=== PATIENT | female | born 1980 | race African-American/Black ===

== ENCOUNTER 2019-07-05 16:17 | Outpatient (CLI) | payer OTHER, SELFPAY ==
--- NOTE | ~2019-07-05 | XR_ITS ---
EXAMINATION: XR chest 2V EXAM DATE: 07/05/2019 16:37 INDICATION: Personal history of nicotine dependence. TECHNIQUE: Frontal and lateral projections of the chest obtained and reviewed. There is no prior stef dy for comparison. FINDINGS: The lungs are clear. There are no pleural effusions. The cardiomediastinal silhouette is within normal limits. There is no pneumothorax suspected. The bones and soft tissues are unremarkab le. IMPRESSION: Normal chest x-ray exam. Reviewed, dictated and finalized at location B. TIC ENGINEER IMPRESSION: Normal chest x-ray exam.
== END 2019-07-05 16:18 | disposition home or self-care (01) ==
PROVIDERS: PCP Family Medicine; Visit Provider Family Medicine
DX: Z87.891 Personal history of nicotine dependence (principal)
CPT/HCPCS: 71046

== ENCOUNTER 2020-06-10 16:12 | Outpatient (CLI) | payer OTHER, SELFPAY ==
--- NOTE | ~2020-06-10 | XR_ITS ---
EXAMINATION: XR elbow RT min 3V DATE: 06/10/2020 16:33 INDICATION: Right elbow pain. TECHNIQUE: 4 views of right elbow were obtained. COMPARISON: None. FINDINGS: Bone alignment is normal. No fracture. Joint spaces are normal. There is an enthesophyte at the sublime tubercle of proximal ulna. No elbow joint effusion. IMPRESSION: 1. No fracture. Reviewed, dictated and finalized at location A. RVISOR OPENING AND PICKING IMPRESSION: 1. No fracture.
[2020-06-10 19:43] LABS: Basophils Absolute Auto 0.1 K/mm3 (0.0-0.1); Basophils Percent Auto 0.9 % (0.2-1.2); Eosinophils Absolute Auto 0.1 K/mm3 (0-0.3); Eosinophils Percent Auto 1.5 % (0-4.4); Hematocrit 41.8 % (37.0-47.0); Hemoglobin 14.2 g/dL (12.0-15.0); Immature Granulocyte Absolute 0.01 K/mm3 (0.00-0.031); Immature Granulocyte Percent A 0.2 % (0-0.5); Lymphocytes Absolute Auto 1.99 K/mm3 (0.9-3.2); Lymphocytes Percent Auto 30.4 % (18.3-44.2); Mean Corpuscular Volume 91.3 fl (80-100); Mean Platelet Volume 11.2 fl (7.4-10.4); Monocytes Absolute Auto 0.6 K/mm3 (0.1-0.6); Neutrophils Absolute Auto 3.8 K/mm3 (1.3-6.7); Platelet Count Result 356 k/mm3 (150-375); Red Blood Count 4.58 M/mm3 (4.2-5.4); Red Cell Distribution Width 12.7 % (11.5-14.5); White Blood Count 6.5 K/mm3 (4.5-10.0)
[2020-06-10 19:51] LABS: Anion Gap 9 mmol/L (8-16); Blood Urea Nitrogen 13 mg/dL (7-17); Calcium 9.8 mg/dL (8.4-10.2); Carbon Dioxide 25 mmol/L (22-30); Chloride 104 mmol/L (98-107); Estimated Glomerular Filt Rate > 60; Glucose 111 mg/dL (65-105); Potassium 4.2 mmol/L (3.4-5.0); Rheumatoid Factor < 8.6 IU/ML (<12); Sodium 138 mmol/L (137-145); Uric Acid 4.9 mg/dL (2.5-7.5)
[2020-06-10 20:11] LABS: Erythrocyte Sedimentation Rate 26 mm/hr (0-20)
[2020-06-13 07:15] LABS: C-Peptide 2.62 ng/mL (0.80-3.85)
[2020-06-15 03:24] LABS: Insulin Level Total 9.3 uIU/mL (<=19.6)
== END 2020-06-10 16:13 | disposition home or self-care (01) ==
LOC: ANHBWCLAB 16:14
PROVIDERS: PCP Family Medicine; Visit Provider Family Medicine
DX: M25.521 Pain in right elbow (principal); M19.90 Unspecified osteoarthritis, unspecified site; Z51.81 Encounter for therapeutic drug level monitoring; Z79.899 Other long term (current) drug therapy; Z82.62 Family history of osteoporosis; R10.9 Unspecified abdominal pain; I10 Essential (primary) hypertension; R73.9 Hyperglycemia, unspecified
CPT/HCPCS: 36415; 73080; 80048; 83525; 84550; 84681; 85025; 85652; 86038; 86140; 86430

== ENCOUNTER 2020-12-16 11:24 | Outpatient (CLI) | payer OTHER, SELFPAY ==
[2020-12-16 19:35] LABS: Hemoglobin A1C 6.1 % (<5.7)
== END 2020-12-16 11:25 | disposition home or self-care (01) ==
LOC: ANHBWCLAB 11:26
PROVIDERS: PCP Family Medicine; Visit Provider Family Medicine
DX: E66.9 Obesity, unspecified (principal); R73.9 Hyperglycemia, unspecified
CPT/HCPCS: 36415; 83036

== ENCOUNTER 2021-01-15 14:53 | Outpatient (CLI) | payer OTHER, SELFPAY ==
--- NOTE | ~2021-01-15 | MR_ITS ---
EXAMINATION: MR elbow RT wo con DATE: 01/15/2021 15:53 INDICATION: Lateral epicondylitis. Right elbow pain. TECHNIQUE: Magnetic resonance imaging (MRI) of the right elbow was performed without intravenous cont rast. Sequences included coronal, axial, and sagittal PD-weighted FS FSE and coronal, axial, and sagi ttal PD-weighted FSE. COMPARISON: Right elbow radiographs 07/07/2020 FINDINGS: Osseous/other: Bone alignment is normal. No fracture. There is partial-thickness cartilage loss in posterior ulnohum eral joint with mild subchondral edema-like marrow signal intensity. Tiny osteophytes are noted. Tendons: Biceps tendon and brachialis tendon are normal. The triceps tendon is normal. The common flexor tendo n is normal. There is a partial tear of the common extensor tendon at lateral humeral epicondyle. Sub cutaneous edema overlies this area. Ligaments: Radial collateral ligament and lateral ulnar collateral ligament are normal. There is an enthesophyte at the distal attachment of ulnar collateral ligament. There are changes of prior sprain of ulnar co llateral ligament characterized by thickening and increased signal intensity. Cubital tunnel: There is increased signal in ulnar nerve, consistent with neuropathy. Subcutaneous edema overlies thi s area. Fluid: There is no elbow joint effusion. IMPRESSION: 1. Partial tear of common extensor tendon at lateral humeral epicondyle. 2. Mild elbow joint chondrosis. 3. Increased signal in ulnar nerve, consistent with neuropathy. Reviewed, dictated and finalized at location A.
== END 2021-01-15 14:54 | disposition home or self-care (01) ==
PROVIDERS: PCP Family Medicine; Visit Provider Orthopaedic Surgery
DX: S56.511A Strain of other extensor muscle, fascia and tendon at forearm level, right arm, initial encounter (principal); M11.221 Other chondrocalcinosis, right elbow; X58.XXXA Exposure to other specified factors, initial encounter
CPT/HCPCS: 73221

== ENCOUNTER → 2021-02-17 02:43 | Outpatient (CLI) | payer OTHER, SELFPAY ==
[2021-02-17 16:22] LABS: SARS-CoV-2 RNA PCR Negative
== END ==
PROVIDERS: PCP Family Medicine; Visit Provider Orthopaedic Surgery
DX: Z01.812 Encounter for preprocedural laboratory examination (principal); Z20.822 Contact with and (suspected) exposure to COVID-19
CPT/HCPCS: C9803; U0003; U0005

== ENCOUNTER 2021-02-17 09:29 | Outpatient (CLI) | payer OTHER, SELFPAY ==
--- NOTE | 2021-02-17 09:36 | ECG_ITS ---
Measurements Intervals [place] Rate: 72 P: 29 TN: 160 QRS: 30 QRSD: 93 T: 37 QT: 381 QTc: 419 Interpretive Statements SINUS RHYTHM ATRIAL AND VENTRICULAR PREMATURE COMPLEXES DELAYED PRECORDIAL R/S TRANSITION BASELINE ARTIFACT- I, II, III, AVR, AVL, AVF BORDERLINE ECG Electronically Signed On 02-17-2021 9:52:05 CDT by Shekhar Mock D.O.
[2021-02-17 09:53] LABS: Hematocrit 42.2 % (37.0-47.0); Hemoglobin 14.4 g/dL (12.0-15.0)
== END 2021-02-17 09:30 | disposition home or self-care (01) ==
PROVIDERS: Anesthesiology; PCP Family Medicine; Visit Provider Orthopaedic Surgery
DX: I10 Essential (primary) hypertension (principal); D64.9 Anemia, unspecified; Z01.818 Encounter for other preprocedural examination
CPT/HCPCS: 36415; 85014; 85018; 93005; C9803; U0003; U0005

== ENCOUNTER 2021-02-20 00:44 | Day surgery (SDC) | payer OTHER, SELFPAY ==
[2021-02-13 08:23] VITALS: BMI 43.0
--- NOTE | 2021-02-19 08:35 | WPDANESEPPF ---
Anes - Initial Pre Proc Eval Procedure: Operation Date: 02/20/21 12:00 Proposed Procedures p Right Ulnar Nerve Decompression of the Elbow, Lateral Epicondylitis Debridement - Alfonzo Burk MD Date/Time: 02/19/21 08:35 Surgeon: Alfonzo Burk MD Pre Op Diagnosis: ulnar neuropathy Patient Data Age: 40 Gender: F Height: 1.68 m Weight: 121.11 kg Allergies Allergy/AdvReac Type Severity Reaction Status Date / Time fluconazole Allergy Itching Verified 02/20/21 10:45 methocarbamol [From Robaxin] Allergy Hives Verified 02/20/21 10:45 Penicillins Allergy Hives Verified 02/20/21 10:45 piperacillin [From Zosyn] Allergy Hives Verified 02/20/21 10:45 tazobactam [From Zosyn] Allergy Hives Verified 02/20/21 10:45 Home Medications Medication Instructions Recorded Confirmed Type pantoprazole 40 mg tablet,delayed 40 mg PO QAM #90 tablet 06/30/20 02/13/21 Rx release ergocalciferol (vitamin D2) 1,250 1,250 mcg PO MONTHLY #3 cap 09/15/20 02/13/21 Rx mcg (50,000 unit) capsule amlodipine 5 mg tablet 5 mg PO DAILY #30 tablet 10/01/20 02/13/21 Rx folic acid 1 mg tablet 1 mg PO DAILY #30 tablet 10/27/20 02/13/21 Rx colestipol 1 gram tablet 1 g PO QID tablet 12/16/20 02/13/21 History lorazepam 1 mg tablet 1 mg PO DAILY PRN #2 tablet 01/13/21 02/13/21 Rx phentermine 37.5 mg tablet 37.5 mg PO DAILY #60 tablet 02/10/21 02/13/21 Rx topiramate 50 mg tablet 50 mg PO DAILY #60 tablet 02/10/21 02/13/21 Rx Patient hx anesthesia problems: none Family hx anesthesia problems: none Results Review: All pre-operative results and documents have been reviewed as part of the pre-operative evaluation. [facility] Past Medical History Medical History Anemia Anxiety Arthritis Arthritis of elbow, right Back pain Cervical cancer Chest pain Epigastric pain GERD (gastroesophageal reflux disease) History of migraine headaches Hypertension Morbid obesity with BMI of 40.0-44.9, adult Obesity MODE (obstructive sleep apnea) Stomach pain Ulnar neuropathy at elbow Surgical History Surgical History H/O tubal ligation H/O: hysterectomy History of back surgery History of cholecystectomy Family History Family History Mother Cerebrovascular accident Diabetes mellitus Hypertension Father Hypertension COPD (chronic obstructive pulmonary disease) Malignant neoplasm of prostate Cerebrovascular accident Grandparent No problems noted. Grandparent No problems noted. Grandparent No problems noted. Grandparent No problems noted. Social History Social History Smoking packs per day: 0.5 Smoking cigarettes per day: 10.0 Years smoked: 15 Smoking pack-years: 7.50 Smoking status: Former smoker Tobacco type: cigarettes Smoking end date: 05/09/11 Alcohol intake: current Drinks per week: 4 Substance use: never Substance use type: does not use Living arrangements: with family Spiritual care concerns: No Anes - Eval Final PreProcedure Day of Procedure 02/19/21 08:35 Patient weight: morbidly obese Heart: regular rate and rhythm Lungs: clear to auscultation and normal air movement Airway: Mallampati scale class II Neurological: alert and oriented Last oral intake: >/= 8 hours ASA classification: III Emergent: no Anesthetic plan: proceed Anesthesia type and monitoring: general LMA Results Review: All pre-operative results and documents have been reviewed as part of the pre-operative evaluation. Informed Consent: The patient's anesthetic plan and its attendant risks and benefits were discussed with the patient/family/POA. Questions were solicited and answers provided to the satisfaction of the patient/family/POA.
[2021-02-20] VITALS (10 sets, daily range): BP systolic 134–155; BP diastolic 79–98; PULSE 80–90; RESP 13–19; TEMP 36.3–36.6; O2SAT 95–99
--- NOTE | 2021-02-20 07:45 | WPDHPUPDATE1 ---
History and Physical Update Update Date/Time: 02/20/21 07:45 History and Physical has been reviewed, including an updated exam of the patient. There are NO changes in the patient's condition. Risks, benefits, and alternatives have been discussed and questions answered. Patient agrees to proceed with procedure.
[2021-02-20] MEDS: LACTATED RINGERS 1,000 ML 30 ML IV CONT ×2 (10:29→14:31)
[2021-02-20] MEDS: ACETAMINOPHEN 500 MG TABLET 1000 MG PO (10:30)
[2021-02-20] MEDS: KETOROLAC 15 MG/ML VIAL (*BKC) IV PUSH (10:30)
--- NOTE | 2021-02-20 11:29 | WPDANESEPPF ---
Anes - Initial Pre Proc Eval Procedure: Operation Date: 02/20/21 12:00 Proposed Procedures p Right Ulnar Nerve Decompression of the Elbow, Lateral Epicondylitis Debridement - Alfonzo Burk MD Date/Time: 02/20/21 11:29 Surgeon: Alfonzo Burk MD Pre Op Diagnosis: ulnar neuropathy Patient Data Age: 40 Gender: F Height: 1.68 m Weight: 118.4 kg Last Vital Signs Temp 36.3 C L 02/20/21 10:17 Pulse 89 02/20/21 10:17 Resp 18 02/20/21 10:17 BP 150/89 H 02/20/21 10:17 Pulse Ox 99 02/20/21 10:17 Allergies Allergy/AdvReac Type Severity Reaction Status Date / Time fluconazole Allergy Itching Verified 02/20/21 10:45 methocarbamol [From Robaxin] Allergy Hives Verified 02/20/21 10:45 Penicillins Allergy Hives Verified 02/20/21 10:45 piperacillin [From Zosyn] Allergy Hives Verified 02/20/21 10:45 tazobactam [From Zosyn] Allergy Hives Verified 02/20/21 10:45 Home Medications Medication Instructions Recorded Confirmed Type pantoprazole 40 mg tablet,delayed 40 mg PO QAM #90 tablet 06/30/20 02/13/21 Rx release ergocalciferol (vitamin D2) 1,250 1,250 mcg PO MONTHLY #3 cap 09/15/20 02/13/21 Rx mcg (50,000 unit) capsule amlodipine 5 mg tablet 5 mg PO DAILY #30 tablet 10/01/20 02/13/21 Rx folic acid 1 mg tablet 1 mg PO DAILY #30 tablet 10/27/20 02/13/21 Rx colestipol 1 gram tablet 1 g PO QID tablet 12/16/20 02/13/21 History lorazepam 1 mg tablet 1 mg PO DAILY PRN #2 tablet 01/13/21 02/13/21 Rx phentermine 37.5 mg tablet 37.5 mg PO DAILY #60 tablet 02/10/21 02/13/21 Rx topiramate 50 mg tablet 50 mg PO DAILY #60 tablet 02/10/21 02/13/21 Rx Patient hx anesthesia problems: none Family hx anesthesia problems: none Results Review: All pre-operative results and documents have been reviewed as part of the pre-operative evaluation. [facility] Past Medical History Medical History Anemia Anxiety Arthritis Arthritis of elbow, right Back pain Cervical cancer Chest pain Epigastric pain GERD (gastroesophageal reflux disease) History of migraine headaches Hypertension Morbid obesity with BMI of 40.0-44.9, adult Obesity MODE (obstructive sleep apnea) Stomach pain Ulnar neuropathy at elbow Surgical History Surgical History H/O tubal ligation H/O: hysterectomy History of back surgery History of cholecystectomy Family History Family History Mother Cerebrovascular accident Diabetes mellitus Hypertension Father Hypertension COPD (chronic obstructive pulmonary disease) Malignant neoplasm of prostate Cerebrovascular accident Grandparent No problems noted. Grandparent No problems noted. Grandparent No problems noted. Grandparent No problems noted. Social History Social History Smoking packs per day: 0.5 Smoking cigarettes per day: 10.0 Years smoked: 15 Smoking pack-years: 7.50 Smoking status: Former smoker Tobacco type: cigarettes Smoking end date: 05/09/11 Alcohol intake: current Drinks per week: 4 Substance use: never Substance use type: does not use Living arrangements: with family Spiritual care concerns: No Anes - Eval Final PreProcedure Day of Procedure 02/20/21 11:29 Patient weight: morbidly obese Heart: regular rate and rhythm Lungs: clear to auscultation Airway: Mallampati scale class II Neurological: alert and oriented Last oral intake: >/= 8 hours ASA classification: III Emergent: no Anesthetic plan: proceed Anesthesia type and monitoring: general LMA and standard monitoring Results Review: All pre-operative results and documents have been reviewed as part of the pre-operative evaluation. Informed Consent: The patient's anesthetic plan and
[2021-02-20] MEDS: ceFAZolin 2 GM/D5W 50 ML 2 GM/50 ML BAG IVPB (12:08)
[2021-02-20] MEDS: BUPIVACAINE HCL 0.5% PF 30 ML VIAL INFILTRATE (13:26)
[2021-02-20] MEDS: fentaNYL CITRATE INJ (*CRX) 100 MCG/2 ML VIAL 25 MCG IV PUSH ×4 (14:15→14:40)
[2021-02-20] MEDS: HYDROmorphone HCL INJ (*CRX) 1 MG/ML SYR 0.5 MG IV PUSH ×2 (14:53→15:02)
--- NOTE | 2021-02-20 15:23 | SUR.PHASEI ---
1520 dr moeller at bedside to place a block to help with pain control.
[2021-02-20] MEDS: oxyCODONE HCL (*CRX) 5 MG TAB IR PO (15:51)
--- NOTE | 2021-02-20 16:21 | W.PM.PROC2 ---
Procedure Note - Detailed Date of Procedure 02/20/21 Pre-op Diagnosis Right elbow 1.Ulnar neuropathy at the elbow 2. Lateral epicondylitis Post-op Diagnosis same Procedure Performed Right 1. Cubital tunnel decompression 2. Lateral epicondyle extensor tendon debridement and repair Surgeon Alfonzo Burk MD Anesthesia general Description of Procedure Preoperative antibiotics given and general anesthetic administered. The arm was prepped and draped in the usual sterile fashion with a well-padded tourniquet on the arm. The limb was exsanguinated and the tourniquet inflated to 250 milliliters of mercury. A longitudinal incision was created posterior to the medial epicondyle. Careful dissection was brought down to the ulnar nerve. It was identified proximally and dissected to the cubital tunnel retinaculum. Careful dissection released the cubital tunnel retinaculum. The dissection was carried out to the flexor carpi the palmaris. The 1st motor branch was carefully identified and protected. Attention was turned proximally in the nerve was released proximal to the intermuscular septum. The arm was flexed and the nerve was assessed. The nerve was stable. The course of the nerve was very nice without evidence of compression or instability. A longitudinal incision was created over the pathological site at the lateral epicondyle. Dissection was brought down to the interval between the common extensor tendons and the extensor carpi radialis longus. The muscle was elevated, exposing the extensor carpi radialis brevis. Degenerative pathologic tendon was identified and excised sharply. The lateral epicondyle was abraded with a rongeur. The scratch test was to confirm complete excision of pathologic tissue. The wound was carefully irrigated. The tourniquet was released. The extensor tendon origin was repaired with [id number] sutures #1 Vicryl . The skin was closed with interrupted 3-0 Monocryl suture followed by running 4-0 Monocryl suture and Steri-Strips. Sterile dressing was applied with the wrist splint. The patient was extubated and brought to the recovery room in stable condition. The tourniquet was released to assure that there was no significant bleeding. Meticulous hemostasis was maintained. The subcutaneous tissues were closed with 2-0 Vicryl suture. The skin was closed with interrupted 3-0 Monocryl suture followed by running 4-0 Monocryl suture and Steri-Strips. Sterile dressing was applied with a hard splint at the elbow, and wrist brace. The patient was extubated and brought to the recovery room in stable condition. Estimated Blood Loss 1 Drains No Pathology none sent Complications No immediate complications Condition stable Disposition PACU
== END 2021-02-20 16:45 | disposition home or self-care (01) ==
PROVIDERS: PCP Family Medicine; Visit Provider Orthopaedic Surgery
PROC: (CPT 64718; principal; 2021-02-20 12:00)
DX: G56.21 Lesion of ulnar nerve, right upper limb (principal); M77.11 Lateral epicondylitis, right elbow; G47.33 Obstructive sleep apnea (adult) (pediatric); K21.9 Gastro-esophageal reflux disease without esophagitis; I10 Essential (primary) hypertension; E66.01 Morbid (severe) obesity due to excess calories; Z68.41 Body mass index [BMI] 40.0-44.9, adult; Z87.891 Personal history of nicotine dependence
CPT/HCPCS: 64718; A9270; J0690; J1100; J1170; J1885; J2250; J2704; J3010; J7120

== ENCOUNTER 2021-12-04 16:00 | Outpatient (CLI) | payer OTHER, SELFPAY ==
--- NOTE | ~2021-12-04 | MR_ITS ---
EXAMINATION: MR brain/brain stem wo con DATE: 12/04/2021 17:15 CDT INDICATION: Dizziness TECHNIQUE: Magnetic resonance imaging (MRI) of the brain and brainstem was performed without intraven ous contrast. Sequences included sagittal and axial T1-weighted SE, axial diffusion-weighted FS SE, a xial T2*-weighted GRE, axial T2-weighted FLAIR Propeller, and axial T2-weighted Propeller. Apparent d iffusion coefficient (ADC) maps were created. COMPARISON: No prior studies for comparison. FINDINGS: The brain volume and ventricular system are within normal limits. The brain parenchymal si gnal intensity pattern and marie/white matter is normal and there is no evidence of hemorrhage, space occupying masses or infarctions. The flow signal voids of the major arterial structures about the [place] and within the ronny r dural venous sinuses appear grossly unremarkable and patent. The seventh and eighth cranial nerve complexes are normal. The mid sagittal image demonstrates a normal craniovertebral junction and daron us callosum. The paranasal sinuses are grossly unremarkable. IMPRESSION: 1: Unremarkable MRI of the brain. Reviewed, dictated and finalized at location A.
== END 2021-12-04 16:01 | disposition home or self-care (01) ==
LOC: ANHIMG 16:03
PROVIDERS: PCP Family Medicine; Visit Provider Family Medicine
DX: H91.92 Unspecified hearing loss, left ear (principal); R42 Dizziness and giddiness
CPT/HCPCS: 70551

== ENCOUNTER 2022-03-05 12:50 | Outpatient (CLI) | payer OTHER, SELFPAY ==
--- NOTE | 2022-03-05 12:54 | ECHO_ITS ---
Patient Info Name: Irina Can Age: 41 years : 1980 Gender: Female Ht: 66 in Wt: 254 lbs BSA: 2.37 m2 HR: 78 bpm BP: 141 / 83 mmHg Heart Rhythm: Sinus Rhythm Technical Quality: Fair Exam Date: 03/05/2022 1:30 PM Exam Location: [facility] Patient Status: Outpatient Admit Date: 03/05/2022 Staff Ordering Physician: Zia Garcias MD Secretarial Stenographer: Karly Robles RDCS Attending Provider: Zia Garcias MD Referring Physician: Dieter RICH; Exam Type: CA echo doppler color flow Study Info Indications - chest pain Summary 1. Left ventricular chamber dimension is normal. 2. Left ventricular systolic function is normal, estimated at 65-70%. 3. There is mildly increased left ventricular wall thickness. 4. The left ventricular diastolic function is normal. 5. There is trace tricuspid valve regurgitation. 6. No pulmonary hypertension, estimated pulmonary arterial systolic pressure is 31 mmHg. 7. There is no mitral valve regurgitation. 8. There is no aortic valve stenosis. Left Ventricle Left ventricular chamber dimension is normal. Left ventricular systolic function is normal, estimated at 65-70%. There is mildly increased left ventricular wall thickness. The left ventricular diastolic function is normal. Right Ventricle Right ventricular chamber dimension is normal. Right ventricular systolic function is normal. Left Atria Left atrial chamber dimension is mildly enlarged. Right Atria Right atrial chamber dimension is normal. Aortic Valve The aortic valve is not well visualized. There is no aortic valve stenosis. There is no aortic valve regurgitation. Pulmonic Valve The pulmonic valve is not well visualized. There is trace pulmonic regurgitation. Mitral Valve The mitral valve has normal leaflets. There is no mitral valve regurgitation. Tricuspid Valve The tricuspid valve leaflets are normal. There is trace tricuspid valve regurgitation. No pulmonary hypertension, estimated pulmonary arterial systolic pressure is 31 mmHg. Pericardium/Pleural The pericardium appears normal. There is no pericardial effusion. Inferior Vena Cava Normal inferior vena cava with >50% collapse upon inspiration consistent with normal right atrial pressure, 5 mmHg. Aorta The aortic root size at the sinus of Valsalva is normal. Left Ventricular Outflow Tract Name Value Normal LVOT 2D LVOT Diameter 2.1 cm LVOT Doppler LVOT Peak Gradient 7 mmHg LVOT Mean Gradient 4 mmHg LVOT VTI 28 cm LVOT VTI/AV VTI Ratio 0.9 LVOT Stroke Volume 99 ml LVOT CO 20.7 l/min LVOT CI 8.7 l/min/m2 Pulmonic Valve Name Value Normal PV Doppler
== END 2022-03-05 12:51 | disposition home or self-care (01) ==
LOC: ANHCARD 12:52
PROVIDERS: PCP Family Medicine; Visit Provider Family Medicine
DX: R07.9 Chest pain, unspecified (principal); Z82.49 Family history of ischemic heart disease and other diseases of the circulatory system
CPT/HCPCS: 93306

== ENCOUNTER 2022-06-03 12:09 | Outpatient (CLI) | payer OTHER, SELFPAY ==
[2022-06-03 21:12] LABS: Vitamin D 25 Hydroxy 18.4 ng/mL
== END 2022-06-03 12:10 | disposition home or self-care (01) ==
LOC: ANHBWCLAB 12:09
PROVIDERS: PCP Family Medicine; Visit Provider Family Medicine
DX: G43.909 Migraine, unspecified, not intractable, without status migrainosus (principal); R79.89 Other specified abnormal findings of blood chemistry
CPT/HCPCS: 36415; 82306

== ENCOUNTER 2022-06-30 10:30 | Outpatient (RCR) | payer OTHER, SELFPAY ==
--- NOTE | 2022-04-15 08:46 | PCPTNOTE ---
Patient did not show up for scheduled appointment this date. Also did not show up last week
--- NOTE | 2022-06-30 11:49 | PTOPEVAL1 ---
Assessment and note entered by Rosa Maria Thomson, PT Evaluation Information Assessment Status Evaluation Diagnosis dizziness Onset August 2021 Subjective Information dizziness started with driving and turning to the L started in August; take valium and that helps, if do not take it, so dizzy that she falls over; no longer take meclazine; have new script for glasses, got in Dec-- feel vision is good; have runny nose when outside, which is new for her ; Describes symptoms as: head swooshy; Increase s/s: change position: stand to sit; L turns in driving; look L too fast; lying on back and turn over in bed. Decrease s/s: take meds, hold still, not move head fast, close eyes; Reported Pain Level Pain Score Self Report: migraines 4-12/16 Additional Pain Score Comments have migraines 4x/wk, last all day, have 4 different scripts for migraines; migraines at the top of her head; no pattern noted with migraines; Assessment PT Clinical Summary Irina has the diagnosis of dizziness. Her medical history includes: HTN, anxiety/panic attacks, pre diabetes, LBP, migraines, neck pain, sleep apnea, back surgery, multiple meds; She reports taking valium daily to decrease her dizziness. She has migraines 4x/week, lasting all day long, and has 4 meds for migraines. Dizziness Handicap self assessment is 44/100= moderate perception of handicap. 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 With the evaluation: she has poor posture and position of neck and shoulders; pain with cervical rotation R and L and flexion motions; [place] was positive to the R; Eply maneuver performed with decreased symptoms. Education provided to pt on general vestibular education, BPPV, monitor BP. Skilled PT services are indicated for treatment of her dizziness, therapeutic activities for maneuvers to clear canalisthesis, further assessment of her vestibular system--occulomotor, eye tracking and cervico-genic cause of dizziness. Continue education to pt for home exercises, safe
--- NOTE | 2022-07-02 11:40 | PCPTNOTE ---
This treatment is being continued on visit number [id number]. Please see documentation on both accounts to view progress. Completed interventions, outcomes, and problems have been marked as Inactive to facilitate the copying of the Care plan routine for recurring accounts.
== END 2022-07-02 11:27 | disposition home or self-care (01) ==
LOC: ANHPT 10:30
PROVIDERS: PCP Family Medicine; Visit Provider Student in an Organized Health Care Education/Training Program
DX: R42 Dizziness and giddiness (principal)
CPT/HCPCS: 95992; 97162; 99199

== ENCOUNTER 2022-07-28 15:45 | Outpatient (RCR) | payer OTHER, SELFPAY ==
--- NOTE | 2022-07-02 11:42 | PCPTNOTE ---
This treatment is being continued from visit number [id number]. Please see documentation on both accounts to view progress. Completed interventions, outcomes, and problems have been marked as Inactive to facilitate the copying of the Care plan routine for recurring accounts.
--- NOTE | 2022-07-07 09:58 | PCPTNOTE ---
pt called and canceled due to car not starting;
--- NOTE | 2022-07-14 15:03 | PCPTNOTE ---
Patient called & cancelled scheduled appointment this date due to not feeling well.
--- NOTE | 2022-08-04 16:24 | PCPTNOTE ---
pt did not show for today's reeval appt; called her and was not able to leave a message due to mail box is full.
--- NOTE | 2022-08-24 15:20 | PCPTNOTE ---
PHYSICAL THERAPY DISCHARGE 08-24-22 Attending Provider: Carlotta Emery MD Patient:Irina Can Date of :1980 Irina has not returned for any further treatments since 07/28/2022, therefore she will be discharged at this time. She received 3 PT sessions, for the diagnosis of dizziness, from June 30 to July 28. The goals were not addressed. Thank you for referring this patient to [facility].
== END 2022-09-20 08:41 | disposition home or self-care (01) ==
LOC: ANHPT 15:45
PROVIDERS: PCP Family Medicine; Visit Provider Student in an Organized Health Care Education/Training Program
DX: R42 Dizziness and giddiness (principal)
CPT/HCPCS: 97110; 97140; 99199

== ENCOUNTER 2022-09-01 13:44 | Outpatient (CLI) | payer OTHER, SELFPAY ==
[2022-09-01 19:36] LABS: Appearance Urine Cloudy (Clear); Bacteria Urine None Seen /hpf; Bilirubin Urine Negative (Negative); Blood Urine Negative (Negative); Color Urine Dark Yellow (Yellow); Glucose Urine UA Negative (Negative); Ketones Urine Negative (Negative); Leukocyte Esterase Ur Negative LEU/UL (NEGATIVE); Nitrate Urine Negative (Negative); Non Pathogenic Casts 0-2; Protein Urine Trace mg/dL (Negative); Specific Grav Ur 1.031 (1.001-1.035); Squamous Epithelial Cell Urine None seen /hpf (Few); Urobilinogen Urine 0.2 mg/dL (<2.0); WBC Urine 0-5 /hpf (0-3); pH Urine 5.5 (5.0-9.0)
[2022-09-01 19:39] LABS: Add Urine Microscopic? YES
== END 2022-09-01 13:45 | disposition home or self-care (01) ==
LOC: ANHBWCLAB 13:45
PROVIDERS: PCP Family Medicine; Visit Provider Nurse Practitioner
DX: R10.9 Unspecified abdominal pain (principal)
CPT/HCPCS: 81001

== ENCOUNTER 2022-11-29 14:14 | Outpatient (CLI) | payer OTHER, SELFPAY ==
--- NOTE | ~2022-11-29 | XR_ITS ---
Right Shoulder Technique: AP and scapular Y views were obtained. Clinical History: Pain Findings: No fracture or dislocation is seen. Osseous alignment is anatomic. The glenohumeral and acr omioclavicular joint spaces are preserved. Soft tissues are unremarkable. Impression: Unremarkable right shoulder radiographs. Reviewed, dictated and finalized at [facility]. Impression: Unremarkable right shoulder radiographs.
--- NOTE | ~2022-11-29 | XR_ITS ---
AP and lateral views of the right scapula CLINICAL HISTORY: Disorder of bone FINDINGS: No fracture or dislocation seen. Joint spaces are preserved. Soft tissues are unremarkable. IMPRESSION: Unremarkable exam. Reviewed, dictated and finalized at location M. IMPRESSION: Unremarkable exam.
== END 2022-11-29 14:15 | disposition home or self-care (01) ==
PROVIDERS: PCP Family Medicine; Visit Provider Family Medicine
DX: G89.29 Other chronic pain (principal); M25.511 Pain in right shoulder; M89.8X1 Other specified disorders of bone, shoulder; R73.03 Prediabetes
CPT/HCPCS: 36415; 73010; 73030; 83036

== ENCOUNTER 2023-03-14 11:23 | Outpatient (CLI) | payer OTHER, SELFPAY ==
[2023-03-14 20:04] LABS: Alanine Aminotransferase 21 U/L (6-35); Albumin Level 3.9 g/dL (3.5-5.1); Alkaline Phosphatase 55 U/L (38-126); Anion Gap 3 mmol/L (8-16); Aspartate Amino Transferase 103 U/L (14-36); Bilirubin,Total 0.5 mg/dL (0.2-1.3); Blood Urea Nitrogen 10 mg/dL (7-17); Calcium 8.9 mg/dL (8.4-10.2); Carbon Dioxide 32 mmol/L (22-30); Chloride 104 mmol/L (98-107); Cholesterol 203 mg/dL (0-200); Estimated Glomerular Filt Rate > 60; Glucose 96 mg/dL (65-110); HDL Direct 62 mg/dL; Potassium 3.4 mmol/L (3.4-5.0); Sodium 139 mmol/L (137-145); Triglycerides 86 mg/dL (<150)
[2023-03-14 20:16] LABS: LDL Cholesterol Direct 95 mg/dL
[2023-03-14 22:40] LABS: Hemoglobin A1C 5.7 % (<5.7)
== END 2023-03-14 11:24 | disposition home or self-care (01) ==
LOC: ANHBWCLAB 11:24
PROVIDERS: PCP Nurse Practitioner Adult Health; Visit Provider Family Medicine
DX: D64.9 Anemia, unspecified (principal); E66.9 Obesity, unspecified; F41.9 Anxiety disorder, unspecified; G43.901 Migraine, unspecified, not intractable, with status migrainosus; G47.33 Obstructive sleep apnea (adult) (pediatric); I10 Essential (primary) hypertension; K21.9 Gastro-esophageal reflux disease without esophagitis; M54.2 Cervicalgia; R10.9 Unspecified abdominal pain; R42 Dizziness and giddiness; R73.03 Prediabetes
CPT/HCPCS: 36415; 80053; 80061; 83036

== ENCOUNTER 2023-03-22 13:47 | Outpatient (CLI) | payer OTHER, SELFPAY ==
--- NOTE | ~2023-03-22 | XR_ITS ---
Right foot Technique: AP and lateral standing views were obtained. Clinical History: Pain Findings: No acute fracture or dislocation is seen. Osseous alignment is anatomic. Joint spaces are p reserved without erosive or degenerative change. Soft tissues are unremarkable. Impression: Unremarkable right foot radiographs. Reviewed, dictated and finalized at location . MAINTENANCE WORKER Impression: Unremarkable right foot radiographs.
== END 2023-03-22 13:48 | disposition home or self-care (01) ==
PROVIDERS: PCP Family Medicine; Visit Provider Nurse Practitioner Family
DX: M79.674 Pain in right toe(s) (principal)
CPT/HCPCS: 73620

== ENCOUNTER 2023-05-05 15:10 | Outpatient (CLI) | payer OTHER, SELFPAY ==
--- NOTE | 2023-05-24 12:20 | WPDHOLTEREM ---
Holter/Event Monitor Holter/Event Monitor Date of procedure: 05/17/23 Holter/Event Procedure: 48 Hr Holter Monitor Indications: Cardiac arrhythmia Conclusion: 1. 48 hour holter monitor on 05/17/23. 2. Predominant rhythm is sinus rhythm. HR range 45-126 bpm; average HR 67 bpm. 3. There are 6 premature supraventricular complexes and 7 supraventricular couplets. There is 1 episode of atrial tachycardia at 140 bpm lasting 7 beats at 15:20. 4. No premature ventricular complexes. No ventricular tachycardia. 5. No sinoatrial or atrioventricular blocks. No significant pauses greater than 2 seconds. 6. Patient reports symptoms of chest pain which demonstrate sinus rhythm, HR range 62-97 bpm.
== END 2023-05-05 15:11 | disposition home or self-care (01) ==
LOC: ANHLAB 15:10
PROVIDERS: PCP Family Medicine; Visit Provider Family Medicine
DX: I49.9 Cardiac arrhythmia, unspecified (principal)
CPT/HCPCS: 93225; 93226

== ENCOUNTER 2023-06-14 14:24 | Outpatient (CLI) | payer OTHER, SELFPAY ==
[2023-06-14 20:17] LABS: Alanine Aminotransferase 20 U/L (6-35); Albumin Level 4.2 g/dL (3.5-5.1); Alkaline Phosphatase 61 U/L (38-126); Anion Gap 6 mmol/L (8-16); Aspartate Amino Transferase 35 U/L (14-36); Bilirubin,Total 0.5 mg/dL (0.2-1.3); Blood Urea Nitrogen 10 mg/dL (7-17); Carbon Dioxide 26 mmol/L (22-30); Chloride 107 mmol/L (98-107); Cholesterol 271 mg/dL (0-200); Estimated Glomerular Filt Rate > 60; Glucose 104 mg/dL (65-110); HDL Direct 49 mg/dL; Potassium 3.9 mmol/L (3.4-5.0); Sodium 139 mmol/L (137-145); Triglycerides 147 mg/dL (<150)
[2023-06-14 20:22] LABS: Hemoglobin A1C 6.2 % (<5.7)
[2023-06-14 20:26] LABS: Hemoglobin 13.2 g/dL (12.0-15.0); Mean Corpuscular HGB Conc 32.2 g/dl (32-36); Mean Corpuscular Volume 96.2 fl (80-100); Platelet Count Result 336 k/mm3 (150-375); Red Blood Count 4.26 M/mm3 (4.2-5.4); Red Cell Distribution Width 13.2 % (11.5-14.5); White Blood Count 5.5 K/mm3 (4.5-10.0)
[2023-06-14 20:28] LABS: LDL Cholesterol Direct 153 mg/dL
[2023-06-14 20:33] LABS: Vitamin D 25 Hydroxy 23.4 ng/mL
[2023-06-14 20:48] LABS: Thyroid Stimulating Hormone 0.982 uIU/mL (0.465-4.680)
== END 2023-06-14 14:25 | disposition home or self-care (01) ==
LOC: ANHBWCLAB 14:28
PROVIDERS: PCP Nurse Practitioner Adult Health; Visit Provider Nurse Practitioner Adult Health
DX: Z13.9 Encounter for screening, unspecified (principal); R79.89 Other specified abnormal findings of blood chemistry; R73.03 Prediabetes
CPT/HCPCS: 36415; 80053; 80061; 82306; 83036; 84443; 85027

== ENCOUNTER 2023-09-22 08:30 | Outpatient (CLI) | payer OTHER, SELFPAY ==
[2023-09-22 19:04] LABS: Basophils Absolute Auto 0.1 K/mm3 (0.0-0.1); Basophils Percent Auto 0.9 % (0.2-1.2); Eosinophils Absolute Auto 0.1 K/mm3 (0-0.3); Eosinophils Percent Auto 0.8 % (0-4.4); Hematocrit 40.6 % (37.0-47.0); Hemoglobin 12.9 g/dL (12.0-15.0); Immature Granulocyte Absolute 0.01 K/mm3 (0.00-0.031); Immature Granulocyte Percent A 0.1 % (0-0.5); Lymphocytes Absolute Auto 2.61 K/mm3 (0.9-3.2); Lymphocytes Percent Auto 29.4 % (18.3-44.2); Mean Corpuscular HGB Conc 31.8 g/dl (32-36); Mean Corpuscular Hemoglobin 30.6 pg (26-34); Mean Corpuscular Volume 96.2 fl (80-100); Mean Platelet Volume 11.7 fl (7.4-10.4); Monocytes Absolute Auto 0.9 K/mm3 (0.1-0.6); Monocytes Percent Auto 9.7 % (2.6-8.5); Neutrophils Absolute Auto 5.2 K/mm3 (1.3-6.7); Neutrophils Percent Auto 59.1 % (45.5-73.1); Platelet Count Result 323 k/mm3 (150-375); Red Blood Count 4.22 M/mm3 (4.2-5.4); Red Cell Distribution Width 13.8 % (11.5-14.5); White Blood Count 8.9 K/mm3 (4.5-10.0)
[2023-09-22 19:31] LABS: Alanine Aminotransferase 21 U/L (6-35); Albumin Level 4.5 g/dL (3.5-5.1); Alkaline Phosphatase 66 U/L (38-126); Anion Gap 8 mmol/L (4-12); Aspartate Amino Transferase 48 U/L (14-36); Bilirubin,Total 0.5 mg/dL (0.2-1.3); Blood Urea Nitrogen 11 mg/dL (7-17); Calcium 9.1 mg/dL (8.4-10.2); Carbon Dioxide 24 mmol/L (22-30); Chloride 105 mmol/L (98-107); Cholesterol 225 mg/dL (0-200); Estimated Glomerular Filt Rate > 60; Glucose 92 mg/dL (65-110); HDL Direct 64 mg/dL; Potassium 3.8 mmol/L (3.4-5.0); Sodium 137 mmol/L (137-145); Triglycerides 90 mg/dL (<150); Uric Acid 4.6 mg/dL (2.5-7.5)
[2023-09-22 19:40] LABS: LDL Cholesterol Direct 129 mg/dL
[2023-09-22 20:38] LABS: Folic Acid 12.8 ng/mL (2.76->20)
[2023-09-22 21:00] LABS: Vitamin D 25 Hydroxy 28.7 ng/mL
[2023-09-22 21:07] LABS: Hemoglobin A1C 5.6 % (<5.7)
== END 2023-09-22 08:31 | disposition home or self-care (01) ==
LOC: ANHBWCLAB 08:31
PROVIDERS: PCP Nurse Practitioner Adult Health; Visit Provider Nurse Practitioner Adult Health
DX: I10 Essential (primary) hypertension (principal); R73.9 Hyperglycemia, unspecified; M25.50 Pain in unspecified joint; R20.2 Paresthesia of skin
CPT/HCPCS: 36415; 80053; 80061; 82306; 82607; 82746; 83036; 83735; 84443; 84550; 85025

== ENCOUNTER 2024-07-03 14:01 | Outpatient (CLI) | payer OTHER, SELFPAY ==
--- OUTSIDE RECORDS SUMMARY | 2024-07-03 16:12 | XMS_ITS | Patient Health Summary ---
Author Organization [facility] Address [address] [place] [address] Care Team Providers Care Digital Watch Assembler Name Role Phone Angélica Rod RN, Justin Bradley MD Primary Care Provider [phone] Note from [facility],non-owned Affiliates and Associated Physician Practices is amultiple site organization consisting of ambulatory clinics and hospital sitesin [place], [place], [place] and [place]. This disclosure is being madepursuant to the Care Everywhere program and may not contain all information available regarding this patient. Last updated 18.[facility] Allergies * Advair Diskus(Shortness of Breath) -High Criticality * Diflucan(Urticaria,Shortness of Breath) -High Criticality * Penicillins(Urticaria) * Methocarbamol(Urticaria) * Piperacillin Sod-Tazobactam So(Urticaria) * Fluconazole(Shortness of Breath,Itching) -High Criticality,Inactive Medications * Be aware that medications may not be up to date on this document. Alwaysverify current medications with the patient. * pantoprazole EC (Protonix) 40 MG tablet Take 1 (one) tablet by mouth once daily * amLODIPine (Norvasc) 10 MG tablet Take 1 (one) tablet by mouth once daily * FOLIC ACID PO Take 1 mg by mouth once daily * albuterol HFA (Proventil; Ventolin; Proair) 108 (90 Base) MCG/ACT inhaler (Started 07/14/2023) Inhale 2 (two) puffs by mouth as needed * Qulipta 30 MG TABS(Started 06/29/2023) Take 1 (one) tablet by mouth once daily * diazePAM (Valium) 2 MG tablet(Started 04/28/2023) Take 1 (one) tablet by mouth 2 times daily * metFORMIN (Glucophage) 500 MG tablet(Started 06/13/2023) Take 1 (one) tablet by mouth once daily * PARoxetine (Paxil) 40 MG tablet(Started 03/14/2023) Take 0.5 (one-half) tablet by mouth once daily * rizatriptan (Maxalt) 10 MG tablet(Started 06/14/2023) Take 1 (one) tablet by mouth once daily * topiramate (Topamax) 50 MG tablet(Started 11/18/2022) Take 1 (one) tablet by mouth once daily * multivitamins (One A Day) capsule Take 1 (one) capsule by mouth once daily * cyanocobalamin (Vitamin B-12) 100 MCG tablet Take 1 (one) tablet by mouth once daily * B Wqvoajs-V-Awakl Acid (vitamin B complex with C) Take 1 (one) tablet by mouth once daily * Biotin 33851 MCG Take 1 (one) tablet by mouth once daily * cholestyramine (Questran) 4 g packet Take 1 (one) packet by mouth once daily * phentermine (Ionamine) 15 MG capsule(Started 01/18/2024) Take 1 (one) capsule by mouth daily before breakfast 5 refills by 07/16/2024 Active Problems Problem Noted Date Diagnosed Date 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 Social History Tobacco Use Types Packs/Day Years Used Date Smoking Tobacco: Former Cigarettes S tarted: 08/04/2011 Smokeless Tobacco: Never Tobacco Cessation:Counseling Given: Not Answered Alcohol Use Standard Drinks/Week Comments Yes 0 (1 standard drink = 0.6 oz pur e alcohol) rare 1-2 times per month Sex and Gender Information Value Date Recorded Sex Assigned at Not on file Gender Identity Not on file Sexual Orientation Not on file Last Filed Vital Signs Vital Sign Reading Time Taken Comments Blood Pressure 155/96 01/18/2024 12:07 PM CDT Pulse 54 01/18/2024 12:07 PM CDT Temperature 37.3 C (99.1 F) 01/18/2024 12:07 PM CDT Respiratory Rate 18 09/15/2015 12:3 1 AM CDT Oxygen Saturation 100% 01/18/2024 12: 07 PM CDT Inhaled Oxygen Concentration - - Weight 115.6 kg (254 lb 12.8 oz) 2023 12:07 PM CDT Height 167.6 cm (5' 6 ) 01/18/2024 12:0 7 PM CDT Body Mass Index 41.13 01/18/2024 12:07 PM CDT Procedures * HEMOGLOBIN A1C(Performed 03/02/2024) * CBC W/O DIFFERENTIAL(Performed 03/02/2024) * IRON + TIBC + FERRITIN(Performed 03/02/2024) * TSH REFLEX FREE T4(Performed 08/16/2023) Performed for Obesity, Class III, BMI 40-49.9 (morbid obesity) (HCC) * COMPREHENSIVE METABOLIC PANEL(Performed 08/16/2023) Performed for Obesity, Class III, BMI 40-49.9 (morbid obesity) (HCC) * LIPID PROFILE(Performed 08/16/2023) Performed for Obesity, Class III, BMI 40-49.9 (morbid obesity) (HCC) * HEMOGLOBIN A1C(Performed 08/16/2023) Performed for Prediabetes * CT ABDOMEN PELVIS W CONTRAST(Performed 09/15/2015) Performed for Post-op pain * COMPREHENSIVE METABOLIC PANEL(Performed 09/15/2015) * CBC W AUTO DIFFERENTIAL(Performed 09/15/2015) * URINALYSIS REFLEX MICROSCOPIC REFLEX CULTURE(Performed 09/15/2015) * URINE DRUG SCREEN IMMUNOASSAY(Performed 09/15/2015) * CULTURE URINE(Performed 09/15/2015) * CARDIAC RHYTHM STRIP ORDER(Performed 09/09/2015) * APHERESIS/TRANSFUSION ORDER(Performed 09/09/2015) * COMPREHENSIVE METABOLIC PANEL(Performed 09/05/2015) * CBC W AUTO DIFFERENTIAL(Performed 09/05/2015) * PATHOLOGY TISSUE EXAM (STL)(Performed 09/04/2015) Performed for Carcinoma of cervix, stage 1 (HCC) * URINALYSIS REFLEX MICROSCOPIC REFLEX CULTURE(Performed 09/04/2015) Performed for Carcinoma of cervix, stage 1 (HCC) * DISSECTION NODE / LYMPHADENECTOMY PELVIC(Performed 09/04/2015) Performed for Carcinoma of cervix, stage 1 (HCC) * LYSIS ADHESIONS(Performed 09/04/2015) Performed for Carcinoma of cervix, stage 1 (HCC) * HYSTERECTOMY ABDOMINAL RADICAL(Performed 09/04/2015) Performed for Carcinoma of cervix, stage 1 (HCC) * HCG URINE QUALITATIVE - POINT OF CARE(Performed 09/04/2015) * PATHOLOGY/GENETICS HISTORICAL-ONBASE(Performed 09/04/2015) * URINALYSIS REFLEX TO MICROSCOPIC NO CULTURE(Performed 08/29/2015) Performed for Pre-op testing * TYPE + SCREEN PANEL(Performed 08/29/2015) Performed for Pre-op testing * PT PTT PANEL(Performed 08/29/2015) Performed for Pre-op testing * COMPREHENSIVE METABOLIC PANEL(Performed 08/29/2015) Performed for Pre-op testing * CBC W AUTO DIFFERENTIAL(Performed 08/29/2015) Performed for Pre-op testing * BLOOD TYPE VERIFICATION(Performed 08/29/2015) * LAB HISTORICAL RESULTS-ONBASE(Performed 08/29/2015) * LAB HISTORICAL RESULTS-ONBASE(Performed 08/29/2015) * CT ABDOMEN PELVIS W CONTRAST(Performed 08/14/2015) Performed for Carcinoma of cervix (HCC) * CARDIAC RHYTHM STRIP ORDER(Performed 08/08/2015) * LAB RESULTS ORDER(Performed 08/08/2015) * PATHOLOGY TISSUE EXAM (STL)(Performed 08/05/2015) Performed for Carcinoma in situ of cervix * BIOPSY VAGINAL(Performed 08/05/2015) Performed for Carcinoma in situ of cervix * DILATION AND CURETTAGE INCOMPLETE , ANY TRIMESTER(Performed 08/05/2015) Performed for Carcinoma in situ of cervix * BIOPSY/CURETTAGE CERVIX/ENDOMETRIAL(Performed 08/05/2015) Performed for Carcinoma in situ of cervix * EXAM UNDER ANESTHESIA(Performed 08/05/2015) Performed for Carcinoma in situ of cervix * HCG URINE QUALITATIVE - POINT OF CARE(Performed 08/05/2015) * PATHOLOGY/GENETICS HISTORICAL-ONBASE(Performed 08/05/2015) * LAB HISTORICAL RESULTS-ONBASE(Performed 07/26/2015) Results * (ABNORMAL) IRON + TIBC + FERRITIN (03/02/2024 8:02 AM CDT) Iron 51 40 - 190 mcg/dL [facility] TIBC 339 250 - 450 mcg/dL (calc) [facility] % Saturation 15(L) 16 - 45 % (calc) [facility] Ferritin 64 16 - 232 ng/mL [facility] Comment: Test Performed at: [facility] [place] [address] [address] CHAZ MENDOZA MD 03/02/2024 8:02 AM CDT 03/02/2024 8:03 AM CDT Elias Cadet III, MD LAB - CHEMISTRY O RDBENJIE Performing Organization Address [facility] de Phone Number [address] [address] * (ABNORMAL) HEMOGLOBIN A1C (03/02/2024 8:02 AM CDT) Only the most recent of2 resultswithin the time period is included. Hemoglobin A1c 6.1(H) <5.7 % of total Hgb [facility] Comment: For someone without known diabetes, a hemoglobin A1c value between 5.7% and 6.4% is consistent with prediabetes and should be confirmed with a follow-up test. For someone with known diabetes, a value <7% indicates that their diabetes is well controlled. A1c targets should be individualized based on duration of diabetes, age, comorbid conditions, and other considerations. This assay result is consistent with an increased risk of diabetes. Currently, no consensus exists regarding use of hemoglobin A1c for diagnosis of diabetes for children. Test Performed at: [facility] [address] CHAZ MENDOZA MD 03/02/2024 8:02 AM CDT 03/02/2024 8:03 AM CDT Elias Cadet III, MD LAB - CHEMISTRY O LUI Performing Organization Address [facility] Co de Phone Number [address] [address] * CBC W/O DIFFERENTIAL (03/02/2024 8:02 AM CDT) White Blood Cell Count 6.7 3.8 - 10.8 Thousand/u L [facility] RBC 4.26 3.80 - 5.10 Million/uL [facility] Hemoglobin 12.9 11.7 - 15.5 g/dL [facility] Hematocrit 40.3 35.0 - 45.0 % [facility] MCV 94.6 80.0 - 100.0 fL [facility] MCH 30.3 27.0 - 33.0 pg [facility] MCHC 32.0 32.0 - 36.0 g/dL [facility] Comment: For adults, a slight decrease in the calculated MCHC value (in the range of 30 to 32 g/dL) is most likely not clinically significant; however, it should be interpreted with caution in correlation with other red cell parameters and the patient's clinical condition. RDW 13.1 11.0 - 15.0 % [facility] Platelet Count 354 140 - 400 Thousand/u L [facility] MPV 11.0 7.5 - 12.5 fL [facility] Comment: Test Performed at: [facility] [address] CHAZ MENDOZA MD 03/02/2024 8:02 AM CDT 03/02/2024 8:03 AM CDT Elias Cadet III, MD LAB - HEMATOLOGY ORDERABLES Performing Organization Address [facility] de Phone Number [facility] [address] [place] [address] * TSH REFLEX FREE T4 (08/16/2023 3:47 PM CDT) [facility] TSH with Reflex FT4 1.81 mIU/L [facility] Comment: Reference Range > or = 20 Years 0.40-4.50 Ranges First trimester 0.26-2.66 Second trimester 0.55-2.73 Third trimester 0.43-2.91 Test Performed at: [place] [address] CHAZ MENDOZA MD Blood BLOOD SPECIMEN / Unknown 08/16/2023 3:47 PM CDT 08/16/2023 3:48 PM CDT Elias Cadet III, MD LAB - CHEMISTRY O RDERABLES Performing Organization Address [facility] Co de Phone Number [facility] [address] [place] [address] * (ABNORMAL) COMPREHENSIVE METABOLIC PANEL (08/16/2023 3:47 PM CDT) Only the most recent of4 resultswithin the time period is included. Pathologist [facility] Glucose 104(H) 65 - 99 mg/dL [facility] Comment: Fasting reference interval For someone without known diabetes, a glucose value between 100 and 125 mg/dL is consistent with prediabetes and should be confirmed with a follow-up test. BUN 10 7 - 25 mg/dL [facility] Creatinine 0.70 0.50 - 0.99 mg/dL [facility] eGFR by Cystatin C 111 > OR = 60 mL/min/1. 73m2 [facility] BUN/Creatinine Ratio SEE NOTE: 6 - 22 (calc) [facility] Comment: Not Reported: BUN and Creatinine are within reference range. Sodium 141 135 - 146 mmol/L [facility] Potassium 3.6 3.5 - 5.3 mmol/L [facility] Chloride 106 98 - 110 mmol/L [facility] CO2 26 20 - 32 mmol/L [facility] Calcium 9.4 8.6 - 10.2 mg/dL [facility] Protein Total 7.1 6.1 - 8.1 g/dL [facility] Albumin 4.3 3.6 - 5.1 g/dL [facility] Globulin Total 2.8 1.9 - 3.7 g/dL (calc) [facility] Albumin/Globulin Ratio 1.5 1.0 - 2.5 (calc) [facility] Bilirubin Total 0.3 0.2 - 1.2 mg/dL [facility] Alkaline Phosphatase 59 31 - 125 U/L [facility] AST 22 10 - 30 U/L [facility] ALT 21 6 - 29 U/L [facility] Comment: Test Performed at: [facility] [id number] [place] [address] CHAZ MENDOZA MD Blood BLOOD SPECIMEN / Unknown 08/16/2023 3:47 PM CDT 08/16/2023 3:48 PM CDT Elias Cadet III, MD LAB - CHEMISTRY O RDERABLES [facility] [address] [place] [address] * (ABNORMAL) LIPID PROFILE (08/16/2023 3:47 PM CDT) Pathologist [facility] Cholesterol 236(H) <200 mg/dL [facility] HDL Cholesterol 60 > OR = 50 mg/dL [facility] Triglycerides 114 <150 mg/dL [facility] LDL Calculated 153(H) mg/dL (calc) [facility] Comment: Reference range: <100 Desirable range <100 mg/dL for primary prevention; <70 mg/dL for patients with CHD or diabetic patients with > or = 2 CHD risk factors. LDL-C is now calculated using the Rahel calculation, which is a validated novel method providing better accuracy than the Friedewald equation in the estimation of LDL-C. Theron DARBY et al. LALIT. 2013;310(19): 6814-2489 (http://education.StoredIQ/faq/XMZ943) CHOL/HDLC RATIO 3.9 <5.0 (calc) [facility] Non HDL Cholesterol 176(H) <130 mg/dL (calc) [facility] Comment: For patients with diabetes plus 1 major ASCVD risk factor, treating to a non-HDL-C goal of <100 mg/dL (LDL-C of <70 mg/dL) is considered a therapeutic option. Test Performed at: [facility] [address] [place] [address] CHAZ MENDOZA MD Blood BLOOD SPECIMEN / Unknown 08/16/2023 3:47 PM CDT 08/16/2023 3:48 PM CDT Elias Cadet III, MD LAB - CHEMISTRY O RDERABLES [facility] [address] [place] [address] * CT ABDOMEN AND PELVIS WITH IV CONTRAST (09/15/2015 2:37 AM CDT) Only the most recent of2 resultswithin the time period is included. Anatomical Region Laterality Modality Abdomen, Pelvis Computed Tomogra phy 09/15/2015 7:24 AM CDT Impressions 09/15/2015 7:31 AM CDT Peripherally enhancing 2.1 x 1.8 cm fluid collection which appears to be just superior to the vaginal cuff concerning for small abscess. There is a small amount of fluid within the anterior abdominal wall measuring approximately 2.4 x 4.1 cm. This could represent a postoperative seroma/hematoma, although superinfection cannot be excluded. Preliminary report was provided by [facility]. Narrative 09/15/2015 7:31 AM CDT Examination: CT of the abdomen and pelvis with contrast History: Recent hysterectomy with incisional drainage and pain Findings: CT of the abdomen and pelvis was performed following the uneventful administration of 100 mL of Omnipaque 350 intravenous contrast. Comparison is made to 08/14/2015. Images through the lung bases demonstrate mild atelectasis. There is no pleural effusion or pneumothorax. There is no pericardial effusion. There is no liver lesion or intrahepatic biliary ductal dilatation. The gallbladder is normal. The spleen is normal. The adrenal glands are normal. There is no renal mass or hydronephrosis. The pancreas is normal. Urinary bladder is partially decompressed. Moderate amount stool is noted throughout the colon. The appendix is normal. There is no evidence of small bowel obstruction. There is a small peripherally enhancing fluid collection within the pelvis seen on image 98 measuring approximately 2.1 x 1.8 cm. This appears to lie just superior to the vaginal cuff. Inflammatory stranding is noted within the pelvis along both pelvic sidewalls. 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 Small amount of fluid is present adjacent to the surgical clips but no loculated fluid collection is seen. There is irregularity of the anterior abdominal wall and enlargement of the left rectus abdominis, likely representing sequela of the recent surgery. Small amount of fluid is noted within the subcutaneous tissues of the anterior abdominal wall, see image 90 where there are 2 small pockets of fluid measuring approximately 2.4 x 4.1 cm. Findings could represent postoperative seroma or postoperative fluid. Superinfection cannot be excluded. There is no suspicious osseous lytic or blastic lesion. Fusion has been performed at L5-S1. Procedure Note Hans Chan MD - 09/15/2015 Examination: CT of the abdomen and pelvis with contrast History: Recent hysterectomy with incisional drainage and pain Findings: CT of the abdomen and pelvis was performed following the uneventful administration of 100 mL of Omnipaque 350 intravenous contrast. Comparison is made to 08/14/2015. Images through the lung bases demonstrate mild atelectasis. There is no pleural effusion or pneumothorax. There is no pericardial effusion. There is no liver lesion or intrahepatic biliary ductal dilatation. The gallbladder is normal. The spleen is normal. The adrenal glands are normal. There is no renal mass or hydronephrosis. The pancreas is normal. Urinary bladder is partially decompressed. Moderate amount stool is noted throughout the colon. The appendix is normal. There is no evidence of small bowel obstruction. There is a small peripherally enhancing fluid collection within the pelvis seen on image 98 measuring approximately 2.1 x 1.8 cm. This appears to lie just superior to the vaginal cuff. Inflammatory stranding is noted within the pelvis along both pelvic sidewalls. 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 Small amount of fluid is present adjacent to the surgical clips but no loculated fluid collection is seen. There is irregularity of the anterior abdominal wall and enlargement of the left rectus abdominis, likely representing sequela of the recent surgery. Small amount of fluid is noted within the subcutaneous tissues of the anterior abdominal wall, see image 90 where there are 2 small pockets of fluid measuring approximately 2.4 x 4.1 cm. Findings could represent postoperative seroma or postoperative fluid. Superinfection cannot be excluded. There is no suspicious osseous lytic or blastic lesion. Fusion has been performed at L5-S1. IMPRESSION Peripherally enhancing 2.1 x 1.8 cm fluid collection which appears to be just superior to the vaginal cuff concerning for small abscess. There is a small amount of fluid within the anterior abdominal wall measuring approximately 2.4 x 4.1 cm. This could represent a postoperative seroma/hematoma, although superinfection cannot be excluded. Preliminary report was provided by [facility]. Elver Colmenares MD CT ORDERABLES * (ABNORMAL) CBC W AUTO DIFFERENTIAL (09/15/2015 1:40 AM CDT) Only the most recent of3 resultswithin the time period is included. WBC 7.0 4.4 - 10.7 x10E9/L 09/15/2015 1:49 AM CDT [facility] WBC Corrected x10E9/L 09/15/2015 1:49 AM CDT [facility] RBC 3.32(L) 3.80 - 5.20 x10E12/L 09/15/2015 1:49 AM CDT [facility] Hemoglobin 9.9(L) 12.0 - 15.6 gm/dL 09/15/2015 1:49 AM CDT [facility] Hematocrit 28.7(L) 35.9 - 45.5 % 09/15/2015 1:49 AM CDT [facility] MCV 86.4 80.7 - 98.3 fl 09/15/2015 1:49 AM CDT [facility] MCH 29.8 26.7 - 34.0 pg 09/15/2015 1:49 AM CDT [facility] MCHC 34.5 30.8 - 35.9 gm/dL 09/15/2015 1:49 AM CDT [facility] Platelet Count 488(H) 153 - 416 x10E9/L 09/15/2015 1:49 AM CDT [facility] RDW-CV 14.9 12.1 - 14.9 % 09/15/2015 1:49 AM CDT [facility] MPV 10.1 9.4 - 12.9 fl 09/15/2015 1:49 AM T [facility] Neutrophils % 56.5 44.0 - 73.0 % 09/15/2015 1:49 AM T [facility] Lymphocytes % 32.1 20.0 - 43.0 % 09/15/2015 1:49 AM CDT [facility] Monocytes % 9.5 5.0 - 13.0 % 09/15/2015 1:49 AM T [facility] Eosinophils % 1.0 0.0 - 6.0 % 09/15/2015 1:49 AM T [facility] Basophils % 0.6 0.0 - 2.0 % 09/15/2015 1:49 AM CDT [facility] Immature Granulocytes 0.3 0 - 1 % 09/15/2015 1:49 AM T [facility] Neutrophil Absolute 3.97 2.01 - 7.14 x10E9/L 09/15/2015 1:49 AM CDT [facility] Lymphocytes Absolute 2.25 1.07 - 3.94 x10E9/L 09/15/2015 1:49 AM CDT [facility] Monocytes Absolute 0.67 0.26 - 1.07 x10E9/L 09/15/2015 1:49 AM CDT [facility] Eosinophils Absolute 0.07 0 - 0.47 x10E9/L 09/15/2015 1:49 AM CDT [facility] Basophils Absolute 0.04 0 - 0.08 x10E9/L 09/15/2015 1:49 AM CDT [facility] Immature Granulocytes Absolute 0.02 0.00 - 0.06 x10E9/L 09/15/2015 1:49 AM [facility] nRBC Auto 0 /100 WBC 09/15/2015 1:49 AM [facility] Blood BLOOD SPECIMEN / Unknown Venipuncture / Unknown 09/15/2015 1:40 AM CDT 09/15/2015 1:47 AM CDT Elver Colmenares MD LAB - HEMATOLOGY O RDERABLES [facility] [address] [place] [address] * (ABNORMAL) URINALYSIS ROUTINE W/REFLEX TO CULTURE (09/15/2015 1:17 AM CDT) Only the most recent of2 resultswithin the time period is included. Color UA Yellow Straw, Yellow, Dark Yellow 09/15/2015 1:38 AM [facility] Clarity UA Clear 09/15/2015 1:38 AM [facility] Specific [place] UA >1.030(H) 1.005 - 1.030 09/15/2015 1:38 AM [facility] pH UA 6.0 5.0 - 8.0 pH 09/15/2015 1:38 AM [facility] Protein UA Trace(A) Negative 09/15/2015 1:38 AM [facility] Blood UA 3+(A) Negative 09/15/2015 1:38 AM [facility] Leukocyte UA 2+(A) Negative 09/15/2015 1:38 AM [facility] Nitrite UA Negative Negative 09/15/2015 1:38 AM [facility] Glucose UA Negative Negative 09/15/2015 1:38 AM [facility] Ketone UA Trace(A) Negative 09/15/2015 1:38 AM [facility] Bilirubin UA Negative Negative 09/15/2015 1:38 AM [facility] Urobilinogen UA 1.0 0.1 - 1.0 EU/dL 09/15/2015 1:38 AM [facility] WBC UA Auto 20-50(A) 0-2, 2-5 # /hpf 09/15/2015 1:38 AM [facility] RBC UA Auto 10-20(A) 0-2, 2-5 # /hpf 09/15/2015 1:38 AM CDT [facility] Epithelial Cell UA Auto 0-2 0-2, 2-5 # /hpf 09/15/2015 1:38 AM CDT [facility] Reflex Status Culture to follow 09/15/2015 1:38 AM CDT [facility] Urine URINE SPECIMEN OBTAINED BY CLEAN CATCH PROCEDURE / Unknown Collection / Unknown 09/15/2015 1:17 AM CDT 09/15/2015 1:29 AM CDT Elver Colmenares MD LAB - URINALYSIS O RDERABLES Performing Organization Address City/[facility]/ZIP Co de Phone Number [facility] [address] [place] [address] * CULTURE URINE (09/15/2015 1:17 AM CDT) Culture <10,000 CFU/mL urogenital bib EVANGELISTA 09/16/2015 11:38 AM CDT [facility] Urine URINE SPECIMEN OBTAINED BY CLEAN CATCH PROCEDURE / Unknown Collection / Unknown 09/15/2015 1:17 AM CDT 09/15/2015 1:29 AM CDT Elver Colmenares MD LAB - MICROBIOLOGY ORDERABLES Performing Organization Address City/[facility]/ZIP Co de Phone Number [facility] [address] [phone] * (ABNORMAL) DRUG SCREEN TOX URINE PANEL (09/15/2015 1:17 AM CDT) Amphetamines Screen Urine Not Detected Not Detected 09/15/2015 1:54 AM CDT [facility] Barbiturates Screen Urine Not Detected Not Detected 09/15/2015 1:54 AM CDT [facility] Benzodiazepines Screen Urine Not Detected Not Detected 09/15/2015 1:54 AM CDT [facility] Cannabinoids Screen Urine Not Detected Not Detected 09/15/2015 1:54 AM CDT [facility] Cocaine Screen Urine Not Detected Not Detected 09/15/2015 1:54 AM CDT [facility] Methadone Screen Urine Not Detected Not Detected 09/15/2015 1:54 AM CDT [facility] Opiate Screen Urine Detected(A) Not Detected 09/15/2015 1:54 AM CDT [facility] Phencyclidine Screen Urine Not Detected Not Detected 09/15/2015 1:54 AM CDT [facility] Urine URINE / Unknown Collection / Unknown 09/15/2015 1:17 AM CDT 09/15/2015 1:41 AM CDT Narrative [facility] - 09/15/2015 1:54 AM CDT This drug screen is designed for MEDICAL purposes only. It is not to be used for legal purposes, including but not limited to worker's comp, police investigations, occupational issues, child custody, etc. Any positive result is only presumptive and must be confirmed with a separate confirmatory test ordered by the physician. Drug Screening Test Cutoff Values: AMPHETAMINES 1000 ng/mL BARBITURATES 200 ng/mL BENZODIAZEPINES 200 ng/mL CANNABINOIDS(THC) 50 ng/mL COCAINE 300 ng/mL METHADONE 300 ng/mL OPIATES 300 ng/mL PHENCYCLIDINE(PCP)25 ng/mL Elver Colmenares MD LAB - URINE CHEMIS TRY ORDERABLES [facility] [address] [id number] * CARDIAC RHYTHM STRIP ORDER (09/09/2015 5:05 AM CDT) Only the most recent of2 resultswithin the time period is included. Narrative 09/09/2015 5:05 AM CDT Ordered by an unspecified provider. Scanned Document CARDIAC SERVICES ORD ERABLES * APHERESIS/TRANSFUSION ORDER (09/09/2015 5:05 AM CDT) Narrative 09/09/2015 5:05 AM CDT Ordered by an unspecified provider. Scanned Document NURSING - VITAL SIGN S AND ASSESSMENT * GROSS + MICRO EXAM (STL) (09/04/2015 1:21 PM CDT) Only the most recent of2 resultswithin the time period is included. Case Report Surgical Pathology Report Case: [id number] Authorizing Provider: Antionette Abreu MD Collected: 09/04/2015 01:21 PM Ordering Location: [facility] Received: 09/05/2015 07:13 AM Pathologist: Marv Zhao MD Specimens: A) - Uterus w Cervix, Uterus , cervix, bilateral tubes B) - Iliac Lymph Node, Right Iliac Lymph Node C) - Iliac Lymph Node, Right Common Iliac Lymph Node D) - Lymph Node, Right Obturator Lymph Node E) - Pelvic Lymph Nodes, Left Pelvic Lymph Node 09/08/2015 4:07 PM CDT [facility] Final Diagnosis 1. Uterus with cervix, and bilateral fallopian tubes: -- Cervical squamous cell carcinoma, size 2.5 x1.8 cm, depth of invasion 8 mm -- Resection margins free of tumor -- Please synaptic summary 2. Right iliac lymph nodes, dissection: -- Negative for metastatic carcinoma (0/2) 3. Right common iliac lymph nodes, dissection: -- Negative for metastatic carcinoma (0/4) 4. Right obturator lymph nodes, dissection: -- Negative for metastatic carcinoma (0/4) 5. Left pelvic lymph nodes, dissection: -- Negative for metastatic carcinoma (0/5) 09/08/2015 4:07 PM T [facility] Gross Description Received in formalin in a container labeled Irina Can, uterus with cervix and bilateral tubes. The container holds an intact uterus with detached, separately submitted bilateral tubes, with a total weight of 212.5 grams. The uterus measures 12 cm from fundus to cervix, 7.5 cm from cornu to cornu, and 5.3 cm from anterior to posterior. The serosa is smooth with scattered adhesions. The parametria measures 4.5 x 1 x 1 cm. The right parametria measures 3.8 x 2.5 x 1.5 cm. The parametria appear unremarkable. The ectocervix measures 4.5 cm in diameter and has a 1.5 cm probe patent, slit-like os. The cervix is rimmed by a vaginal cuff, measuring from 2.5 cm, up to 3.1 cm. The anterior cervix is inked blue, with the posterior cervix inked black. There is a 2.5 x 1.8 cm, white-barron appearing mass near the anterior endocervical canal at the approximate 3 o'clock position. There is a thickened mucosa with a polypoid-appearin g area, measuring 1.5 x 1 cm, located on the posterior endocervical canal, 1.5 cm from the ectocervix. The mass appears to have a thickness of 1 cm. The remaining cervical canal is lined by barron mucosa. The endometrial cavity is triangular and measures 5 cm from cornu to cornu x 5.5 cm in length. The endometrium is pink-barron and thickened. The myometrium measures 2.5 cm maximum thickness. Received separately in the container are two un-oriented fallopian tube segments. The shorter segment measures 0.5 cm in length and up to 0.1 cm in diameter, and consists of a fimbriated end with a 0.7 x 0.5 x 0.5 cm peritubal cyst. The long fallopian tube segment measures 4.5 cm in length and up to 0.7 cm in diameter and has a fimbriated end. The fallopian tube segment has an attached 1.2 x 1 x 1 cm, clear fluid-filled peritubal cyst near the fimbriated end, and a 1 x 0.7 x 0.5 cm, clear fluid-filled peritubal cyst near the mid portion. Sections through the larger fallopian tube shows a patent lumen with no focal lesions. Accounts Receivable Bookkeeper sections, including the entire cervix, are submitted as follows: A1 - Right parametrium A2 - Left parametrium A3-A7 - Cervix from 12 to 3 o'clock A8-A11 - Cervix from 3 to 6 o'clock A12-A16 - Cervix from 6 to 9 o'clock A17-A20 - Cervix from 9 to 12 o'clock A21 - Anterior lower uterine segment A22 - Posterior lower uterine segment A23 - Anterior endomyometrium and serosa A24 - Posterior endomyometrium and serosa A25 - Entire shorter fallopian tube segment A26 - Accounts Receivable Bookkeeper sections of longer fallopian tube segment Container 2 is labeled right iliac lymph node. The container holds an 8.5 x 4 x 2.5 cm, yellow-barron, lobular fragment of fat. The specimen contains two nodes, measuring 1 x 0.7 x 0.5 cm and 3.5 x 2.5 x 1.7 cm. The larger node is serially sectioned and has a barron cut surface. The nodes are entirely submitted as follows: B1 - Smaller node B2-B4 - Larger node Container 3 is labeled right common iliac lymph node. The container holds two fragments of fat, measuring 3.5 x 2 x 1 cm in aggregate. Sections show several lymph nodes and lymph node candidates, measuring from 0.2 cm, up to 1 cm in greatest dimension. The larger node is bisected. The lymph nodes are entirely submitted as follows: C1 - Multiple lymph nodes and lymph node candidates C2 - Single node bisedcted Container 4 is labeled right obturator lymph node. The container holds a 5 x 4 x 1.5 cm, yellow-barron, lobular fragment of fat. Sections show four nodes, measuring from 1 cm, up to 3.5 cm. The node and node candidates are entirely submitted as follows: D1 - Two nodes D2-D3 - Single node, bisected D4-D5 - Single node, bisected Container 5 is labeled left pelvic lymph node. The container holds multiple yellow-barron, lobular fragments of fat, measuring 6.5 x 4 x 1.5 cm. Sections show five lymph nodes, measuring from 0.3 cm, up to 4.2 cm. The lymph nodes are entirely submitted as follows: E1 - Two nodes E2 - Single node, bisected E3 - Single node, bisected E4-E5 - Single node, bisected DYT/tc 09/08/2015 4:07 PM [facility] Microscopic Description 1. Sections of right and left parametrium shows fibrovascular and adipose connective tissue with no evidence of malignancy. 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 The tumor is composed of solid aggregates of cells with eosinophilic cytoplasm, large hyperchromatic and pleomorphic nuclei with increased NC ratio and frequent mitosis. The cervical squamous epithelium shows squamous carcinoma in situ. The tumor depth of invasion is 8 mm. The endomyometrium and uterine serosa show benign histology. The endometrium shows a secretory pattern. The bilateral fallopian tubes show unremarkable histology. 2 to 5. Sections show 2, 4, 4, and 5 lymph nodes respectively. No metastatic carcinoma is seen. 09/08/2015 4:07 PM [facility] Synoptic Report Uterine Cervix: Trachelectomy, Hysterectomy, Pelvic Exenteration Cervix Trach - All Specimens SPECIMEN Specimen: Cervix Specimen: Uterine corpus Specimen: Right fallopian tube Specimen: Left fallopian tube Procedure: Radical hysterectomy Tumor Site: Left superior quadrant (12 to 3 o'clock) Tumor Site: Left inferior quadrant (3 to 6 o'clock) TUMOR Histologic Type: Squamous cell carcinoma Histologic Grade: G2: Moderately differentiated EXTENT Tumor Size: Greatest dimension (cm): 2.5 Additional Dimension (cm): 1.8 Stromal Invasion Depth (mm): 8 Horizontal Extent (mm): 2.5 MARGINS Margins: Margins uninvolved by invasive carcinoma ACCESSORY FINDINGS Lymph-Vascular Invasion: Not identified STAGE (pTNM [FIGO]) TNM Descriptors: Not applicable Primary Tumor (pT): pT1b1 [IB1]: Clinically visible lesion 4.0 cm or less in greatest dimension Regional Lymph Nodes (pN): pN0: No regional lymph node metastasis Number of Lymph Nodes Examined: Specify: 15 Number of Lymph Nodes Involved: Specify: 0 Distant Metastases (pM): Not applicable 09/08/2015 4:07 PM CDT [facility] Pathology/Cytology SPECIMEN FROM UTERINE CERVIX OBTAINED BY HYSTERECTOMY / Unknown 09/04/2015 1:21 PM CDT 09/05/2015 7:13 AM CDT Miscellaneous samples (specimen) ENTIRE ILIAC LYMPH NODE / Unknown 09/04/2015 1:22 PM CDT 09/05/2015 7:13 AM CDT Miscellaneous samples (specimen) ENTIRE ILIAC LYMPH NODE / Unknown 09/04/2015 1:27 PM CDT 09/05/2015 7:13 AM CDT Miscellaneous samples (specimen) ENTIRE LYMPH NODE / Unknown 09/04/2015 1:46 PM CDT 09/05/2015 7:13 AM CDT Miscellaneous samples (specimen) PELVIC LYMPH NODES SAMPLING / Unknown 09/04/2015 2:09 PM CDT 09/05/2015 7:13 AM CDT Antionette Abreu MD LAB - PATHOLOGY/CYTO LOGY ORDERABLES [facility] [address] [place] [address] * HCG URINE QUALITATIVE - POINT OF CARE (IP) (09/04/2015 8:09 AM CDT) Only the most recent of2 resultswithin the time period is included. HCG Qual Urine Negative Negative [facility] POCT TESTING QC Verified Yes Yes [facility] POC T TESTING Urine specimen (specimen) URINE / Unknown 09/04/2015 8:09 AM CDT Antionette Abreu MD LAB - POINT OF CARE ORDERABLES [facility] TEST[facility] [address] [phone] * PATHOLOGY/GENETICS HISTORICAL-ONBASE (09/04/2015) Only the most recent of2 resultswithin the time period is included. 09/04/2015 Narrative [facility] - 09/09/2015 11:19 AM CDT Historical Provider LAB - CHEMISTRY O RDERABLES Performing Organization Address City/[facility]/ZIP Co de Phone Number [facility] [address] * URINALYSIS ROUTINE AUTO (08/29/2015 9:26 AM CDT) Color UA Yellow Straw, Yellow, Dark Yellow 08/29/2015 9:39 AM CDT [facility] Clarity UA Clear 08/29/2015 9:39 AM CDT [facility] Specific [place] UA 1.024 1.005 - 1.030 08/29/2015 9:39 AM CDT [facility] pH UA 6.5 5.0 - 8.0 pH 08/29/2015 9:39 AM CDT [facility] Protein UA Negative Negative 08/29/2015 9:39 AM CDT [facility] Blood UA Negative Negative 08/29/2015 9:39 AM CDT [facility] Leukocyte UA Negative Negative 08/29/2015 9:39 AM CDT [facility] Nitrite UA Negative Negative 08/29/2015 9:39 AM CDT [facility] Glucose UA Negative Negative 08/29/2015 9:39 AM CDT [facility] Ketone UA Negative Negative 08/29/2015 9:39 AM CDT [facility] Bilirubin UA Negative Negative 08/29/2015 9:39 AM CDT [facility] Urobilinogen UA 1.0 0.1 - 1.0 EU/dL 08/29/2015 9:39 AM CDT [facility] Urine URINE SPECIMEN OBTAINED BY CLEAN CATCH PROCEDURE / Unknown Collection / Unknown 08/29/2015 9:26 AM CDT 08/29/2015 9:32 AM CDT Antionette Abreu MD LAB - URINALYSIS ORD ERABLES Performing Organization Address [facility]/ZIP Co de Phone Number [facility] [address] [place] [address] * TYPE + SCREEN PANEL (08/29/2015 9:25 AM CDT) ABO O 08/29/2015 10:42 AM CDT [facility] Rh Type Positive 08/29/2015 10:42 AM CDT [facility] Comment:History check perfor med. No retype required. Antibody Screen Negative 08/29/2015 10:42 AM CDT [facility] Miscellaneous samples (specimen) BLOOD SPECIMEN / Unknown Venipuncture / Unknown 08/29/2015 9:25 AM CDT 08/29/2015 9:32 AM CDT Antionette Abreu MD LAB - BLOOD BANK ORD ERABLES Performing Organization Address City/[facility] Co de Phone Number [facility] [address] * PT PTT PANEL (08/29/2015 9:25 AM CDT) PT 9.9 9.5 - 11.6 sec 08/29/2015 9:48 AM CDT [facility] INR 1.0 0.9 - 1.1 08/29/2015 9:48 AM CDT [facility] PTT 25.9 21.0 - 32.0 sec 08/29/2015 9:48 AM CDT [facility] Blood BLOOD SPECIMEN / Unknown Venipuncture / Unknown 08/29/2015 9:25 AM CDT 08/29/2015 9:30 AM CDT Narrative [facility] - 08/29/2015 9:48 AM CDT Conventional Warfarin Anticoagulant Therapy: INR Reference Range: 2.0-3.0 Intensive Warfarin Anticoagulant Therapy: INR Reference Range: 2.5-3.5 Heparin Therapeutic Range for PTT: 47.7 - 68.6 seconds. Antionette Abreu MD LAB - COAGULATION OR DERABLES Performing Organization Address [facility] Co de Phone Number [facility] [address] [place] [address] * BLOOD TYPE VERIFICATION (08/29/2015 9:10 AM CDT) ABO O 08/29/2015 10:41 AM CDT [facility] Rh Type Positive 08/29/2015 10:41 AM CDT [facility] Miscellaneous samples (specimen) BLOOD SPECIMEN / Unknown Venipuncture / Unknown 08/29/2015 9:10 AM CDT 08/29/2015 10:05 AM CDT Antionette Abreu MD LAB - BLOOD BANK ORD ERABLES Performing Organization Address [facility] de Phone Number [facility] [address] [place] [address] * LAB HISTORICAL RESULTS-ONBASE (08/29/2015) Only the most recent of3 resultswithin the time period is included. 08/29/2015 Narrative [facility] - 08/29/2015 2:38 PM CDT Historical Provider LAB - CHEMISTRY O RDERABLES Performing Organization Address [facility] Co de Phone Number [facility] [address] * LAB RESULTS ORDER (08/08/2015 3:12 AM CDT) Narrative 08/08/2015 3:12 AM CDT Ordered by an unspecified provider. Scanned Document LAB - THERAPEUTIC DR MEHTA MONITORING ORDERABLES Care Teams Digital Watch Assembler Relationship Specialty Start Date End Date Zia Garcias MD [address] [place] [id number] PCP - General Family Medicine 07/20/23 Angélica Rod, video editing intern 09/05/15
--- OUTSIDE RECORDS SUMMARY | 2024-07-03 16:12 | XMS_ITS | Encounter Summary ---
Author Organization [facility] Healthcare Address [address] [place] [address] Care Team Providers Care Roll Carrier Name Role Phone Juan Hwang DO Primary Care Provider [phone] Zia Garcias MD Primary Care Provider [phone] Encounter Details Date Type Department Care Team (Late st Contact Info) Description 01/29/2021 Telephone [facility] [address] [place] [id number] Tyra Bond, [facility] Social History Tobacco Use Types Packs/Day Years Used Date Smoking Tobacco: Never Smokeless Tobacco: Never Alcohol Use Standard Drinks/Week Comments Yes 0 (1 standard drink = 0.6 oz pur e alcohol) socially Comments No Sex and Gender Information Value Date Recorded Sex Assigned at Not on file Legal Sex Female 9:25 AM LOAN COLLECTOR Gender Identity Female 05/19/2022 3:11 PM LOAN COLLECTOR Sexual Orientation Straight 05/19/2022 3: 11 PM LOAN COLLECTOR documented as of this encounter Plan of Treatment Not on file documented as of this encounter Visit Diagnoses Not on filedocumented in this encounter Care Teams Roll Carrier Relationship Specialty Start Date End Date Juan Hwang DO PCP - General Family Medicine 03/27/20 02/11/22 Zia Garcias MD PCP - General Family Practice 02/12/22 documented as of this encounter
--- OUTSIDE RECORDS SUMMARY | 2024-07-03 16:12 | XMS_ITS | Referral Summary ---
Author Organization [facility] Address [address] [place] [address] Care Team Providers Care Jewelry Jobber Name Role Phone Angélica Rod RN, Justin Bradley MD Primary Care Provider [phone] Source Comments [facility],non-owned Affiliates and Associated Physician Practices is amultiple site organization consisting of ambulatory clinics and hospital sitesin [place], [place], [place] and [place]. This disclosure is being madepursuant to the Care Everywhere program and may not contain all information available regarding this patient. Last updated 18.[facility] Encounters Date Type Department Care Team Description 06/27/2024 Travel from Last 3 Months Allergies Active Allergy Reactions Criticality Noted Date Comments Advair Diskus Shortness of Breath High 03/26/2020 Diflucan Urticaria,Shortness of Breath High 08/04/2015 Penicillins Urticaria 08/04/2015 Methocarbamol Urticaria 08/04/2015 Piperacillin Sod-Tazobactam So Urticaria 08/04/2015 Medications * Be aware that medications may not be up to date on this document. Alwaysverify current medications with the patient. Medication Sig Dispensed Refills Start Date End Date Status pantoprazole EC (Protonix) 40 MG tablet Take 1 (one) tablet by mouth once daily Active amLODIPine (Norvasc) 10 MG tablet Take 1 (one) tablet by mouth once daily Active FOLIC ACID PO Take 1 mg by mouth once daily Active albuterol HFA (Proventil; Ventolin; Proair) 108 (90 Base) MCG/ACT inhaler Inhale 2 (two) puffs by mouth as needed 07/14/2023 Active Qulipta 30 MG TABS Take 1 (one) tablet by mouth once daily 06/29/2023 Active diazePAM (Valium) 2 MG tablet Take 1 (one) tablet by mouth 2 times daily 04/28/2023 Active metFORMIN (Glucophage) 500 MG tablet Take 1 (one) tablet by mouth once daily 06/13/2023 Active PARoxetine (Paxil) 40 MG tablet Take 0.5 (one-half) tablet by mouth once daily 03/14/2023 Active rizatriptan (Maxalt) 10 MG tablet Take 1 (one) tablet by mouth once daily 06/14/2023 Active topiramate (Topamax) 50 MG tablet Take 1 (one) tablet by mouth once daily 11/18/2022 Active multivitamins (One A Day) capsule Take 1 (one) capsule by mouth once daily Active cyanocobalamin (Vitamin B-12) 100 MCG tablet Take 1 (one) tablet by mouth once daily Active B Nldbiqe-G-Kxxaa Acid (vitamin B complex with C) Take 1 (one) tablet by mouth once daily Active Biotin 24056 MCG Take 1 (one) tablet by mouth once daily Active cholestyramine (Questran) 4 g packet Take 1 (one) packet by mouth once daily Active phentermine (Ionamine) 15 MG capsuleIndications: Obesity, Class III, BMI 40-49.9 (morbid obesity) (HCC) Take 1 (one) capsule by mouth daily before breakfast 30 capsule 5 01/18/2024 Active Active Problems Problem Noted Date Diagnosed Date [...] Mass Index 41.13 01/18/2024 12:07 PM CDT Functional Status Functional Status Response Date of Assess ment Is person deaf or have serious hearing difficult y? No 09/04/2015 Is person blind or have serious difficulty seein g? No 09/04/2015 Does person have serious dif ficulty walking/climbing stairs? No 09/04/2015 Does person have difficulty dressing/bathing? No 09/04/2015 Does person have difficulty doing errands alone? No 09/04/2015 Cognitive Status Response Date of Assessm ent Does person have difficulty concentrating/remembering/making decisions? No 09/04/2015 Plan of Treatment Upcoming Encounters Date Type Department Care Team (Late st Contact Info) Description 07/18/2024 1:00 PM CDT Office Visit [facility] - [address] [address] Danyelle Amin PA-C [address] [facility] [place] [address] 01/30/2025 1:30 PM CDT Office Visit [facility] - [address] [address] Elias Cadet III, MD [address] [place] [phone] Goals Goal Patient Goal Type Associated Problems Recent Progress Patient-Stated? Author Medication Management General On track( 024 11:51 AM CDT) No Kyle Horan, RN Note: Expected end date: ongoing Interventions: Take all medications as prescribed Let your doctor know right away about any changes in your medications Make sure to request a refill of your medication at least one week prior to your last dose Procedures Procedure Name Priority Date/Time Associated Diagnosis Comments HEMOGLOBIN A1C 03/02/2024 8:02 AM CDT LIPID PROFILE Routine 08/16/2023 3:47 PM CDT Obesity, Class III, BMI 40-49.9 (morbid obesity) (HCC) from Last 3 Months or Most Recently Relevant to Health Maintenance Results * (ABNORMAL) HEMOGLOBIN A1C (03/02/2024 8:02 AM CDT) Hemoglobin A1c 6.1(H) <5.7 % of total [...] of diabetes for children. Test Performed at: [facility] [phone] CHAZ MENDOZA MD 03/02/2024 8:02 AM CDT 03/02/2024 8:03 AM CDT Elias Cadet III, MD LAB - CHEMISTRY O RDERABLES [address] [address] * (ABNORMAL) LIPID PROFILE (08/16/2023 3:47 PM CDT) Cholesterol 236(H) <200 mg/dL [facility] HDL Cholesterol [...] LDL-C. Theron DARBY et al. LALIT. 2013;310(19): 3490-7019 (http://education.[employer]/faq/OYQ016) CHOL/HDLC RATIO 3.9 <5.0 (calc) [facility] Non HDL Cholesterol 176(H) <130 mg/dL (calc) [facility] Comment: For patients with diabetes plus 1 major ASCVD risk factor, treating to a non-HDL-C goal of <100 mg/dL (LDL-C of <70 mg/dL) is considered a therapeutic option. Test Performed at: [facility] [address] [place] [address] CHAZ MENDOZA MD Blood BLOOD SPECIMEN / Unknown 08/16/2023 3:47 PM CDT 08/16/2023 3:48 PM CDT Elias Cadet III, MD LAB - CHEMISTRY O RDERABLES Performing Organization Address City/State/[facility] Co de Phone Number [facility] [address] [place] [address] from Last 3 Months or Most Recently Relevant to Health Maintenance Advance Directives * Full Code (Latest Code Status on File) Date Activated Date Inactivated Comments 09/04/2015 4:51 PM 09/07/2015 10:05 PM Care Teams Jewelry Jobber Relationship Specialty Start Date End Date Zia Garcias MD [address] [place] [phone] PCP - General Family Medicine 07/20/23 Angélica Rod, power shear operator 09/05/15
--- OUTSIDE RECORDS SUMMARY | 2024-07-03 16:12 | XMS_ITS | Clinical Summary ---
Author Organization [facility] Address [address] [place] [address] Phone Care Team Providers Care Chief Service Observer Name Role Phone Zia Garcias MD Primary Care Provider [phone] Allergies Active Allergy Reactions Criticality Noted Date Comments Fluconazole Shortness of Breath 10/28/2017 Penicillins Hives,Shortness of Breath 10/28/2017 Methocarbamol Hives 10/28/2017 Piperacillin Sod-Tazobactam So Hives 10/28/2017 Medications lisinopril (PRINIVIL, ZESTRIL) 40 MG Tablet Take 40 mg by mouth daily. Active hydroCHLOROthia zide 12.5 MG Tablet Take by mouth daily. Active HYDROcodone-marky taminophen (NORCO) 5-325 MG Tablet Take 1-2 Tabs by mouth every 6 hours as needed for Moderate or more severe pain. 15 Tab 01/20/2020 Active ibuprofen (MOTRIN) 600 MG Tablet Take 1 Tab by mouth every 8 hours. 50 Tab 01/20/2020 Active AMLODIPINE BESYLATE PO Take by mouth. Active FOLIC ACID PO Take by mouth. Active VITAMIN D PO Take by mouth. Active pantoprazole (PROTONIX) 20 MG Tablet Delayed Response Take 20 mg by mouth daily. Active Topiramate (TOPAMAX PO) Take by mouth. Active LORazepam (ATIVAN) 0.5 MG Tablet Take 0.5 mg by mouth every 6 hours as needed. Active famotidine (PEPCID) 20 MG Tablet Take 1 Tablet by mouth 2 times daily. 60 Tablet 01/30/2022 Active Social History Tobacco Use Types Packs/Day Years Used Date Smoking Tobacco: Former Cigarettes Q uit: 10/29/2011 Smokeless Tobacco: Never Alcohol Use Standard Drinks/Week Comments Yes 3 (1 standard drink = 0.6 oz pur e alcohol) ocassionally Comments No Sex and Gender Information Value Date Recorded Sex Assigned at Not on file Legal Sex Female 12:14 AM CDT Gender Identity Not on file Sexual Orientation Not on file Last Filed Vital Signs Vital Sign Reading Time Taken Comments Blood Pressure 163/91 01/07/2024 11:29 AM CDT Pulse 57 01/07/2024 11:29 AM CDT Temperature 36.4 C (97.5 F) 01/07/2024 11:29 AM CDT Respiratory Rate 14 01/07/2024 11:2 9 AM CDT Oxygen Saturation 97% 01/07/2024 11: 29 AM CDT Inhaled Oxygen Concentration - - Weight 114.6 kg (252 lb 10.4 oz) 01/07/2024 8:47 AM CDT Height 167.6 cm (5' 6 ) 01/07/2024 8:47 AM CDT Body Mass Index 40.78 01/07/2024 8:47 AM CDT Plan of Treatment Health Maintenance Due Date Last Done Comments Hepatitis C Virus (HCV) Screening 1981 TdaP Immunization 1981 Hepatitis B Immunization (1 of 3 - 19+ 3-dose series) 2000 Pap Smear 2002 Cervical Cancer Screening (CCS) 07/26/2011 HPV/Cotest 07/26/2011 Mammogram 06/25/2023 06/25/2022, 04/09, 02/28/2020 Influenza Immunization (#1) 01/08/202404/08, 03/17/2016, 01/30/2015 SARS-COV-2 Immunization ( season) 2024 Respiratory Syncytial Virus (RSV) Immunization (Adult) (1 - 1-dose 75+ series) 2056 DTaP/Tdap/Td Immunization Discontinued 1995, 02/04/1987, 12/24/1985, Additional history exists Discussion re Starting/Frequency of Mammograms Completed 06/25/2022, 05/01/2020, 02/28/2020 Meningococcal Immunization (ACWY) Aged Out No longer eligible based on patient's age to complete this topic Pneumococcal Immunization Combined Aged Out No longer eligible based on patient's age to complete this topic Rotavirus Immunization Aged Out No lo nger eligible based on patient's age to complete this topic Insurance MEDICAID [employer] Care Teams Chief Service Observer Relationship Specialty Start Date End Date Zia Garcias MD [address] [place] [id number] PCP - General Family Medicine 07/12/23
--- OUTSIDE RECORDS SUMMARY | 2024-07-03 16:12 | XMS_ITS | Referral Summary ---
Author Organization [facility] Address [address] [place] [address] Care Team Providers Care Slip Caster Name Role Phone Zia Garcias MD Primary Care Provider [phone] Allergies Active Allergy Reactions Criticality Noted Date Comments Fluticasone Propion-Salmeterol Shortness of breath High 03/26/2020 Methocarbamol Hives Medium Penicillins Hives,Shortness of breath High Piperacillin-Tazobactam Hives Medium 03/26/2020 Medications topiramate (TOPAMAX) 25 mg tablet Take 25 mg by mouth daily Active folic acid (FOLVITE) 1 mg tablet Take 1 mg by mouth daily Active ergocalciferol (VITAMIN D) 50,000 unit capsule Take 50,000 Units by mouth every 30 (thirty) days Active pantoprazole DR (PROTONIX) 40 mg EC tablet Take 40 mg by mouth daily Active amLODIPine (NORVASC) 5 mg tablet TK 1 T PO D 04/08/2020 Active apple cider vinegar 500 mg tablet Take by mouth Active multivitamin capsule Take 1 capsule by mouth daily Active cholestyramine (QUESTRAN) 4 gram powder Take 1 packet 1-3 times daily to help control chronic diarrhea. Dissolve in 8 oz of liquid and drink before a meal. Should take 1 hour before or 4 hours after other medications. 90 packet 2 08/28/2020 Active colestipoL (COLESTID) 1 gram tablet Take 1 tablet (1 g total) by mouth 2 (two) times a day 60 tablet 11 11/28/2020 Active diazePAM (VALIUM) 2 mg tablet TAKE 1 TABLET BY MOUTH TWICE DAILY NEEDED FOR VERTIGO 01/18/2022 Active Active Problems Problem Noted Date Diagnosed Date Chest pain 02/12/2022 Family history of ischemic h eart disease and other diseases of the circulatory system 02/12/2022 Hypertension 02/12/2022 Upper abdominal pain 11/28/2020 Fecal urgency 11/28/2020 Obesity, Class III, BMI 40-49.9 (morbid obesity) 08/25/2020 Blood in stool 08/25/2020 Intermittent epigastric abdominal pain Gastroesophageal reflux disease 08/22/2020 Overview (08/22/2020): Added automatically from request for surgery [id number] Postprandial epigastric pain 08/22/2020 Overview (08/22/2020): Added automatically from request for surgery [id number] 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 Abdominal pain 07/23/2020 Gastroesophageal reflux dise ase with esophagitis without hemorrhage 07/23/2020 Biliary colic 05/21/2020 Overview (05/21/2020): Added automatically from request for surgery [id number] Resolved Problems Problem Noted Date Diagnosed Date Resolved Date Cholelithiasis 07/01/2020 Immunizations Immunization Administration Dates Next Due DTP 02/04/1987, 6,06/12/1982,01/15 Influenza, Quadrivalent, Spl it, Intramuscular 01/30/2015 Influenza, Unspecified 03/17/2016 MMR 02/07/1992,02/15/1986 OPV 02/04/1987, 6,06/12/1982,01/15 Td, adsorbed 11/22/1995 Social History Tobacco Use Types Packs/Day Years Used Date Smoking Tobacco: Never Smokeless Tobacco: Never Tobacco Cessation:Counseling Given: Not Answered Alcohol Use Standard Drinks/Week Comments Yes 0 (1 standard drink = 0.6 oz pur e alcohol) socially Comments No Sex and Gender Information Value Date Recorded Sex Assigned at Not on file Legal Sex Female 9:25 AM BARROW WORKER HELPER Gender Identity Female 05/19/2022 3:11 PM BARROW WORKER HELPER Sexual Orientation Straight 05/19/2022 3: 11 PM BARROW WORKER HELPER Last Filed Vital Signs Vital Sign Reading Time Taken Comments Blood Pressure 126/72 02/12/2022 2:28 PM CDT Pulse 64 02/12/2022 2:28 PM CDT Temperature 36.8 C (98.2 F) 12/29/2020 1:05 PM CDT Respiratory Rate 16 12/29/2020 1:05 PM CDT Oxygen Saturation 96% 02/12/2022 2:28 PM CDT Inhaled Oxygen Concentration - - Weight 113.4 kg (250 lb) 02/12/2022 2:28 PM CDT Height 167.6 cm (5' 6 ) 02/12/2022 2:28 PM CDT Body Mass Index 40.35 02/12/2022 2:28 PM CDT Plan of Treatment Not on file Procedures Procedure Name Priority Date/Time Associated Diagnosis Comments SCREENING MAMMOGRAM BILATERAL W STIVEN Schedule Routine, Read Routine (OP Routine) 06/25/2022 3:56 PM BARROW WORKER HELPER Screening mammogram, encounter for from Last 3 Months or Most Recently Relevant to Health Maintenance Results * Screening Mammogram Bilateral W Stiven (06/25/2022 3:56 PM BARROW WORKER HELPER) Anatomical Region Laterality Modality Breast Bilateral Mammography 06/25/2022 4:04 PM BARROW WORKER HELPER Impressions 06/25/2022 4:04 PM BARROW WORKER HELPER There is no mammographic evidence of malignancy. A 1 year screening mammogram is recommended. BI-RADS: 2 - Benign. The patient has been or will be contacted. The patient will be entered into a reminder system with a target due date of 1 year for her next mammogram. Electronically signed by: Malik Solomon M.D. Narrative 06/25/2022 4:04 PM BARROW WORKER HELPER EXAMINATION: SCREENING MAMMOGRAM BILATERAL W STIVEN ORDERING HEALTHCARE PROVIDER: SELF SCREENING MAMMOGRAM HISTORY: Routine screening mammography. COMPARISON: 05/01/2020, 02/28/2020 TECHNIQUE: CC and MLO views of the bilateral breasts were obtained with digital technique using breast tomosynthesis with C view. Computer aided detection was utilized. FINDINGS: DENSITY: There are scattered fibroglandular elements in the bilateral breasts. BREASTS: There are stable small benign-appearing oval circumscribed masses in both breasts, which are favored to represent benign intramammary lymph nodes. There are no suspicious masses, suspicious calcifications, or other suspicious findings in either breast. There has been no suspicious interval change. us Self Screening Mammogram IMG MAMMO PROCEDURES Fi nal Result from Last 3 Months or Most Recently Relevant to Health Maintenance Insurance [facility] Advance Directives For more information, please contact: [phone] * Full Code (Latest Code Status on File) Date Activated Date Inactivated Comments 12/29/2020 11:34 AM 12/29/2020 5:39 PM * Full Code Date Activated Date Inactivated Comments 12/29/2020 11:34 AM 12/29/2020 11:34 AM Care Teams Slip Caster Relationship Specialty Start Date End Date Zia Garcias MD PCP - General Family Practice 02/12/22
--- OUTSIDE RECORDS SUMMARY | 2024-07-03 16:12 | XMS_ITS | Clinical Summary ---
Author Organization [facility] Sealed Address [address] [place] [address] Care Team Providers Care Database Support Name Role Phone Angélica Rod RN, Justin Bradley MD Primary Care Provider [phone] Source Comments [facility],non-owned Affiliates and Associated Physician Practices is amultiple site organization consisting of ambulatory clinics and hospital sitesin [place], [place], [place] and [place]. This disclosure is being madepursuant to the Care Everywhere program and may not contain all information available regarding this patient. 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 Encounters Date Type Department Care Team Description 06/27/2024 Travel from Last 3 Months Social History Tobacco Use Types Packs/Day Years [...] Mass Index 41.13 01/18/2024 12:07 PM CDT Plan of Treatment Upcoming Encounters Date Type Department Care Team (Late st Contact Info) Description 07/18/2024 1:00 PM CDT Office Visit [facility] - [address] [phone] Danyelle Amin PA-C [address] [facility] [place] [phone] 01/30/2025 1:30 PM CDT Office Visit [facility] - [address] [phone] Elias Cadet III, MD [address] [place] [phone] Health Maintenance Due Date Last Done Comments PAP SMEAR 1981 HIV SCREENING 1996 HEPATITIS C SCREENING 07/21/1999 DTAP/TDAP/TD VACCINES (1 - Tdap) 2000 HEPATITIS B VACCINE (1 of 3 - 19+ 3-dose series) 2000 COVID-19 VACCINE ( season) 2024 DEPRESSION SCREENING 05/09/2024 MAMMOGRAM 06/25/2024 06/25/2022, 06/09, 05/01/2020, Additional history exists SCREENING FOR DIABETES 03/02/2027 , 08/16/2023, 08/16/2023, Additional history exists LIPID TESTING 08/15/2028 08/16/2023 ZOSTER VACCINE (1 of 2) 07/26/2031 INFLUENZA VACCINE Completed 03/26/2024, , 03/17/2016, Additional history exists HIB VACCINE Aged Out No longer eligi ble based on patient's age to complete this topic HPV VACCINE Aged Out No longer eligi ble based on patient's age to complete this topic MENINGOCOCCAL (Group B) VACCINE Aged Out No longer eligible based on patient's age to complete this topic MENINGOCOCCAL VACCINE Aged Out No jake marcella eligible based on patient's age to complete this topic PNEUMOCOCCAL VACCINE Aged Out No long er eligible based on patient's age to complete this topic Goals Goal Patient Goal Type Associated Problems Recent Progress Patient-Stated? Author Medication Management General On track( 024 11:51 AM CDT) Kyle Barton, RN Note: Expected end date: ongoing Interventions: [...] of diabetes for children. Test Performed at: [facility] [address] CHAZ MENDOZA MD 03/02/2024 8:02 AM CDT 03/02/2024 8:03 AM CDT Elias Cadet III, MD LAB - CHEMISTRY O LUI Performing Organization Address [facility] Co de Phone Number [address] [address] * (ABNORMAL) LIPID PROFILE (08/16/2023 3:47 PM [...] LDL-C. Theron DARBY et al. LALIT. 2013;310(19): 8925-6256 (http://education.[employer].LearnSprout/faq/PFA021) CHOL/HDLC RATIO 3.9 <5.0 (calc) [facility] Non HDL Cholesterol 176(H) <130 mg/dL (calc) [facility] Comment: For patients with diabetes plus 1 major ASCVD risk factor, treating to a non-HDL-C goal of <100 mg/dL (LDL-C of <70 mg/dL) is considered a therapeutic option. Test Performed at: [facility] (Closed) [id number] [address] CHAZ MENDOZA MD Blood BLOOD SPECIMEN / Unknown 08/16/2023 3:47 PM CDT 08/16/2023 3:48 PM CDT Elias Cadet III, MD LAB - CHEMISTRY O LUI Performing Organization Address [facility] Co de Phone Number [address] [address] from Last 3 Months or Most Recently Relevant to Health Maintenance Advance Directives * Full Code (Latest Code Status on File) Date Activated Date Inactivated Comments 09/04/2015 4:51 PM 09/07/2015 10:05 PM Care Teams Database Support Relationship Specialty Start Date End Date Zia Garcias MD [address] [place] [phone] PCP - General Family Medicine 07/20/23 Angélica Rod, edge plugger 09/05/15
--- OUTSIDE RECORDS SUMMARY | 2024-07-03 16:12 | XMS_ITS | Clinical Summary ---
Author Organization 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 Abdominal pain 07/23/2020 Gastroesophageal reflux dise ase with esophagitis without hemorrhage 07/23/2020 Biliary colic 05/21/2020 Overview (05/21/2020): Added automatically from request for surgery [id number] Resolved Problems Problem Noted Date Diagnosed Date Resolved Date Cholelithiasis 07/01/2020 Immunizations Immunization Administration Dates Next Due DTP 02/04/1987, 6,06/12/1982,01/15 Influenza, Quadrivalent, Spl it, Intramuscular 01/30/2015 Influenza, Unspecified 03/17/2016 MMR 02/07/1992,02/15/1986 OPV 02/04/1987, 6,06/12/1982,01/15 Td, adsorbed 11/22/1995 Surgical History Surgery Date Site/Laterality Comments HERNIA REPAIR Hernia repair HYSTERECTOMY TUBAL LIGATION SPINE SURGERY CHOLECYSTECTOMY GALLBLADDER SURGERY COLONOSCOPY 12/29/2020 1st Medical History Medical History Date Comments Hx Other Medical Back Pain Hx Other Medical 2005 Tubaligation Hx Other Medical 2010 Back Surgery Gastroesophageal reflux disease GERD Hypertension Hypertension Breast disorder Breast mass Cancer (CMS/HCC) (HCC) Cervical cancer (CMS/HCC) (HCC) Cholelithiasis Anxiety Family History Medical History Relation Name Comments Prostate cancer Father Breast cancer Maternal cousin Relation Name Status Comments Father Maternal cousin Social History Tobacco Use Types Packs/Day Years Used Date Smoking Tobacco: Never Smokeless Tobacco: Never Tobacco Cessation:Counseling Given: Not Answered Alcohol Use Standard Drinks/Week Comments Yes 0 (1 standard drink = 0.6 oz pur e alcohol) socially Comments No Sex and Gender Information Value Date Recorded Sex Assigned at Not on file Legal Sex Female 9:25 AM BEAD CUTTER Gender Identity Female 05/19/2022 3:11 PM BEAD CUTTER Sexual Orientation Straight 05/19/2022 3: 11 PM BEAD CUTTER Obstetrics History Para Term AB IAB SAB Ectopic Multiple Livin g Live Births 5 3 3 Date Outcome GA Total Labor Labor/2nd/3rd Weight Sex Type Anes PTL Fatoumata A1 A5 Name Clin Term Term Term Last Filed Vital Signs Vital Sign Reading [...] 02/12/2022 2:28 PM CDT Plan of Treatment Health Maintenance Due Date Last Done Comments Depression Screening 1981 Hepatitis C Screening 1981 Varicella Vaccines (1 of 2 - 13+ 2-dose series) 1994 DTaP/Tdap/Td Vaccine (5 - Tdap) 11/23/1995 11/22/1995, 02/04/1987, 12/24/1985, Additional history exists Hepatitis B Screening 07/26/1999 Regular Well Visit/Exam 18-64 07/26/1999 Breast Cancer Screening-Mammogram 06/25/2023 06/25/2022, 05/01/2020, 02/28/2020 Influenza Vaccine (#1) 2024 03/17/2016, 2014 HPV Vaccines Aged Out No longer eligi ble based on patient's age to complete this topic Pneumococcal vaccine <65 Aged Out No longer eligible based on patient's age to complete this topic Procedures Procedure Name Priority Date/Time Associated Diagnosis Comments SCREENING MAMMOGRAM BILATERAL W STIVEN Schedule Routine, Read Routine (OP Routine) 06/25/2022 3:56 PM BEAD CUTTER Screening mammogram, encounter for from Last 3 Months or Most Recently Relevant to Health Maintenance Results * Screening Mammogram Bilateral W Stiven (06/25/2022 3:56 PM BEAD CUTTER) Anatomical Region Laterality Modality Breast Bilateral Mammography 06/25/2022 4:04 PM BEAD CUTTER Impressions 06/25/2022 4:04 PM BEAD CUTTER There is no mammographic evidence of malignancy. A 1 year screening mammogram is recommended. BI-RADS: 2 - Benign. The patient has been or will be contacted. The patient will be entered into a reminder system with a target due date of 1 year for her next mammogram. Electronically signed by: Malik Solomon M.D. Narrative 06/25/2022 4:04 PM BEAD CUTTER EXAMINATION: SCREENING MAMMOGRAM BILATERAL W SITVEN ORDERING HEALTHCARE PROVIDER: SELF SCREENING MAMMOGRAM HISTORY: [...] Most Recently Relevant to Health Maintenance Insurance [facility] Advance Directives For more information, please contact: [phone] * Full Code (Latest Code Status on File) Date Activated Date Inactivated Comments 12/29/2020 11:34 AM 12/29/2020 5:39 PM * Full Code Date Activated Date Inactivated Comments 12/29/2020 11:34 AM 12/29/2020 11:34 AM Care Teams Carburetor Repairer Relationship Specialty Start Date End Date Zia Garcias MD PCP - General Family Practice 02/12/22
[2024-07-03 19:14] LABS: Basophils Absolute Auto 0.1 K/mm3 (0.0-0.1); Basophils Percent Auto 1.3 % (0.2-1.2); Eosinophils Absolute Auto 0.1 K/mm3 (0-0.3); Eosinophils Percent Auto 1.4 % (0-4.4); Hematocrit 39.8 % (37.0-47.0); Hemoglobin 12.9 g/dL (12.0-15.0); Immature Granulocyte Absolute 0.02 K/mm3 (0.00-0.031); Immature Granulocyte Percent A 0.3 % (0-0.5); Lymphocytes Absolute Auto 2.53 K/mm3 (0.9-3.2); Lymphocytes Percent Auto 36.1 % (18.3-44.2); Mean Corpuscular HGB Conc 32.4 g/dl (32-36); Mean Corpuscular Hemoglobin 30.7 pg (26-34); Mean Corpuscular Volume 94.8 fl (80-100); Mean Platelet Volume 10.9 fl (7.4-10.4); Monocytes Absolute Auto 0.6 K/mm3 (0.1-0.6); Neutrophils Absolute Auto 3.7 K/mm3 (1.3-6.7); Neutrophils Percent Auto 52.9 % (45.5-73.1); Platelet Count Result 346 k/mm3 (150-375); Red Cell Distribution Width 13.2 % (11.5-14.5)
[2024-07-03 19:21] LABS: Alanine Aminotransferase 23 U/L (6-35); Albumin Level 4.1 g/dL (3.5-5.1); Alkaline Phosphatase 55 U/L (38-126); Anion Gap 10 mmol/L (4-12); Aspartate Amino Transferase 57 U/L (14-36); Bilirubin,Total 0.4 mg/dL (0.2-1.3); Blood Urea Nitrogen 12 mg/dL (7-17); Calcium 9.2 mg/dL (8.4-10.2); Carbon Dioxide 25 mmol/L (22-30); Chloride 106 mmol/L (98-107); Cholesterol 235 mg/dL (0-200); Estimated Glomerular Filt Rate > 60; Glucose 91 mg/dL (65-110); HDL Direct 58 mg/dL; Potassium 3.7 mmol/L (3.4-5.0); Sodium 141 mmol/L (137-145); Triglycerides 165 mg/dL (<150)
[2024-07-03 19:31] LABS: LDL Cholesterol Direct 109 mg/dL
[2024-07-03 22:20] LABS: Hemoglobin A1C 5.7 % (<5.7)
== END 2024-07-03 14:02 | disposition home or self-care (01) ==
LOC: ANHBWCLAB 14:02
PROVIDERS: PCP Nurse Practitioner Adult Health; Visit Provider Nurse Practitioner Adult Health
DX: R73.03 Prediabetes (principal); I10 Essential (primary) hypertension
CPT/HCPCS: 36415; 80053; 80061; 83036; 83735; 85025

== ENCOUNTER 2024-12-24 10:42 | Outpatient (CLI) | payer OTHER, SELFPAY ==
--- NOTE | ~2024-12-24 | XR_ITS ---
EXAM/ PROCEDURE: XR lumbar spine 2-3V - 12/24/2024 10:54 CDT HISTORY: 44 years old Female with M54.9 - Dorsalgia, unspecified COMPARISON: None available TECHNIQUE: Three view(s) FINDINGS/ IMPRESSION: There are no fractures or dislocations.Intervertebral disc spaces are within normal limits. L5-S1 int ervertebral disc spacer. Atherosclerotic calcifications and surgical clips seen, Reviewed, dictated and finalized at location A.
--- OUTSIDE RECORDS SUMMARY | 2024-12-24 11:32 | XMS_ITS | Encounter Summary ---
Author Organization [facility] Healthcare Address [address] [place] [address] Care Team Providers Care Raimann Machine Operator Name Role Phone Juan Hwang DO Primary Care Provider [phone] Zia Garcias MD Primary Care Provider [phone] Encounter Details Date Type Department Care Team (Late st Contact Info) Description 01/29/2021 Telephone [facility] [address] [place] [id number] Tyra Bond, [facility] Social History Tobacco Use Types Packs/Day Years Used Date Smoking Tobacco: Never Smokeless Tobacco: Never Alcohol Use Standard Drinks/Week Comments Yes 0 (1 standard drink = 0.6 oz pur e alcohol) socially Comments No Sex and Gender Information Value Date Recorded Sex Assigned at Not on file Legal Sex Female 9:25 AM REPRODUCTION ORDER PROCESSOR Gender Identity Female 05/19/2022 3:11 PM REPRODUCTION ORDER PROCESSOR Sexual Orientation Straight 05/19/2022 3: 11 PM REPRODUCTION ORDER PROCESSOR documented as of this encounter Plan of Treatment Not on file documented as of this encounter Visit Diagnoses Not on filedocumented in this encounter Care Teams Raimann Machine Operator Relationship Specialty Start Date End Date Juan Hwang DO PCP - General Family Medicine 03/27/20 02/11/22 Zia Garcias MD PCP - General Family Practice 02/12/22 documented as of this encounter
--- OUTSIDE RECORDS SUMMARY | 2024-12-24 11:32 | XMS_ITS | Clinical Summary ---
Author Organization [facility] Address [address] [place] [address] Phone Care Team Providers Care Senior Boiler Operator Name Role Phone Zia Garcias MD Primary Care Provider [phone] Allergies Active Allergy Reactions Criticality Noted Date [...] 8:47 AM CDT Height 167.6 cm (5' 6) 01/07/2024 8:47 AM CDT Body Mass Index 40.78 01/07/2024 8:47 AM CDT Plan of Treatment Health Maintenance Due Date Last Done Comments Hepatitis C Virus (HCV) Screening 1981 TdaP Immunization 1981 Hepatitis B Immunization (1 of 3 - 19+ 3-dose series) 2000 Human Papillomavirus (HPV) Immunization (1 - 3-dose SCDM series) 2008 Mammogram 06/25/2023 06/25/2022, 04/09, 02/28/2020 SARS-COV-2 Immunization ( season) 2024 Influenza Immunization (#1) 01/07/202504/08, 03/17/2016, 01/30/2015 Respiratory Syncytial Virus (RSV) Immunization (Adult) (1 [...] Insurance MEDICAID [employer] Care Teams Senior Boiler Operator Relationship Specialty Start Date End Date Zia Garcias MD PCP - General Family Medicine 07/12/23
--- OUTSIDE RECORDS SUMMARY | 2024-12-24 11:32 | XMS_ITS | Clinical Summary ---
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 Abdominal pain 07/23/2020 Gastroesophageal reflux dise ase with esophagitis without hemorrhage 07/23/2020 Biliary colic 05/21/2020 Overview (05/21/2020): Added automatically from request for surgery [id number] Resolved Problems Problem Noted Date Diagnosed Date [...] Other Medical 2005 Tubaligation Hx Other Medical 2011 Back Surgery Gastroesophageal reflux disease GERD Hypertension Hypertension Breast disorder Breast mass Cancer (HCC) Cervical cancer (HCC) Cholelithiasis Anxiety Family History Medical History Relation Name Comments Prostate cancer Father Breast cancer Maternal cousin Ovarian cancer Neg Hx Pancreatic cancer Neg Hx Relation Name Status Comments Father Maternal cousin [...] on file Legal Sex Female 9:25 AM STARS ANALYTICAL LEAD Gender Identity Female 05/19/2022 3:11 PM STARS ANALYTICAL LEAD Sexual Orientation Straight 05/19/2022 3: 11 PM STARS ANALYTICAL LEAD Obstetrics History Para Term AB IAB SAB Ectopic Multiple Livin g Live Births 5 3 3 Date Outcome GA Total Labor Labor//3rd Weight Sex Type Anes PTL Fatoumata A1 A5 Name Clin Term Term Term Last Filed Vital Signs Vital Sign Reading Time Taken Comments Blood Pressure 126/72 02/12/2022 2:28 PM CDT Pulse 64 02/12/2022 2:28 PM CDT Temperature 36.8 C (98.2 F) 12/29/2020 1:05 PM CDT Respiratory Rate 16 12/29/2020 1:05 PM CDT Oxygen Saturation 96% 02/12/2022 2: 28 PM CDT Inhaled Oxygen Concentration - - Weight 111.4 kg (245 lb 9.5 oz) 08/31/2024 8:45 AM CDT Height 167.6 cm (5' 6) 08/31/2024 8:45 AM CDT Body Mass Index 39.64 08/31/2024 8:45 AM CDT Plan of Treatment Health Maintenance Due Date Last Done Comments Depression Screening 1980 Hepatitis C Screening 1980 Varicella Vaccines (1 of 2 - 13+ 2-dose series) 1994 DTaP/Tdap/Td Vaccine (5 - Tdap) 11/23/1995 11/22/1995, 02/04/1987, 12/24/1985, Additional history exists Hepatitis B Screening 07/26/1999 Regular Well Visit/Exam 18-64 07/26/1999 HPV Vaccines (1 - 3-dose SCDM series) 2008 Influenza Vaccine (#1) 2025 03/17/2016, 2014 Breast Cancer Screening-Mammogram 08/31/2025 08/31/2024, 06/25/2022, 05/01/2020, Additional history exists Pneumococcal vaccine <65 Aged Out No longer eligible based on patient's age to complete this topic Procedures Procedure Name Priority Date/Time Associated Diagnosis Comments SCREENING MAMMOGRAM BILATERAL W STIVEN Schedule Routine, Read Routine (OP Routine) 08/31/2024 8:56 AM CDT Screening mammogram, encounter for from Last 3 Months or Most Recently Relevant to Health Maintenance Results * Screening Mammogram Bilateral W Stiven (08/31/2024 8:56 AM CDT) Anatomical Region Laterality Modality Breast Bilateral Mammography Impressions 08/31/2024 10:24 AM CDT Bilateral No evidence of malignancy in either breast. OVERALL BI-RADS FINAL ASSESSMENT: 1 - Negative RECOMMENDATION: Recommend bilateral annual screening mammography. Narrative 08/31/2024 10:24 AM CDT EXAMINATION: Screening Mammogram Bilateral W Stiven: 08/31/2024 COMPARISON: Relevant prior studies available at the time of interpretation were reviewed. TECHNIQUE: Mammography was performed with 2D and digital breast tomosynthesis (DBT) images. CAD was utilized. BREAST PARENCHYMAL COMPOSITION: There are scattered areas of fibroglandular density. FINDINGS: Bilateral There is no suspicious mass, calcification, or architectural distortion in either breast. us Self Screening Mammogram IMG MAMMO PROCEDURES Fi nal Result from Last 3 Months or Most Recently Relevant to Health Maintenance Insurance [facility] Member Subscriber Plan / Payer (Ef fective 2020-Present) Name:Irina Can Lakisha Relation to Subscriber:Self Name:Irina Can Payer ID:[id number] (NAIC) Group ID:Not on file Type:MEDICAID RISK OTHER Address: [address] [place], [place] [id number] [place] [address] [facility] Advance Directives For more information, please contact: [phone] * Full Code (Latest Code Status on File) Date Activated Date Inactivated Comments 12/29/2020 11:34 AM 12/29/2020 5:39 PM * Full Code Date Activated Date Inactivated Comments 12/29/2020 11:34 AM 12/29/2020 11:34 AM Care Teams Education Supervisor Relationship Specialty Start Date End Date Zia Garcias MD PCP - General Family Practice 02/12/22
--- OUTSIDE RECORDS SUMMARY | 2024-12-24 11:32 | XMS_ITS | Clinical Summary ---
Author Organization [facility] Address [address] [place] [address] Care Team Providers Care Shoe Sewing Machine Operator And Tender Name Role Phone Angélica Rod RN, Justin Bradley MD Primary Care Provider [phone] Source Comments [facility] [employer],non-owned Affiliates and Associated Physician Practices is amultiple site organization consisting of ambulatory clinics and hospital sitesin [place], [place], [place] and [place]. This disclosure is being madepursuant to the Care Everywhere program and may not contain all information available regarding this patient. Last updated 18.[facility] Allergies Active Allergy Reactions Criticality Noted Date Comments Advair Diskus Shortness of Breath High 03/26/2020 Diflucan Urticaria,Shortness of Breath High 08/04/2015 Penicillins Urticaria 08/04/2015 Methocarbamol Urticaria 08/04/2015 Piperacillin Sod-Tazobactam So Urticaria 08/04/2015 Medications * Be aware that medications may not be up to date on this document. Alwaysverify current medications with the patient. pantoprazole EC (Protonix) 40 MG tablet Take 1 (one) tablet by mouth once daily Active amLODIPine (Norvasc) 10 MG tablet Take 1 (one) tablet by mouth once daily Active FOLIC ACID PO Take 1 mg by mouth once daily Active albuterol HFA (Proventil; Ventolin; Proair) 108 (90 Base) MCG/ACT inhaler Inhale 2 (two) puffs by mouth as needed 4 Active Qulipta 30 MG TABS Take 1 (one) tablet by mouth once daily 4 Active diazePAM (Valium) 2 MG tablet Take 1 (one) tablet by mouth 2 times daily 3 Active PARoxetine (Paxil) 40 MG tablet Take 0.5 (one-half) tablet by mouth once daily 3 Active rizatriptan (Maxalt) 10 MG tablet Take 1 (one) tablet by mouth once daily 4 Active multivitamins (One A Day) capsule Take 1 (one) capsule by mouth once daily Active cyanocobalamin (Vitamin B-12) 100 MCG tablet Take 1 (one) tablet by mouth once daily Active B Jenwzbb-K-Xwwpe Acid (vitamin B complex with C) Take 1 (one) tablet by mouth once daily Active Biotin 25785 MCG Take 1 (one) tablet by mouth once daily Active cholestyramine (Questran) 4 g packet Take 1 (one) packet by mouth once daily Active topiramate (Topamax) 100 MG tablet Take 1 (one) tablet by mouth once daily 30 tablet 5 5 Active metFORMIN (Glucophage) 500 MG tablet Take 1 (one) tablet by mouth once daily 30 tablet 5 5 Active phentermine (Ionamine) 30 MG capsuleIndicati ons:Obesity, Class III, BMI 40-49.9 (morbid obesity) (HCC) Take 1 (one) capsule by mouth daily before breakfast 30 capsule 5 5 Active Active Problems Problem Noted Date Diagnosed Date Migraine 07/20/2024 FRANSISCO (generalized anxiety disorder) 07/20/2024 Obesity, Class III, BMI 40-49.9 (morbid obesity) 07/20/2024 Prediabetes 07/20/2024 Primary hypertension 07/20/2024 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 Social History Tobacco Use Types Packs/Day Years Used Date Smoking Tobacco: Former Cigarettes S tarted: 08/04/2011 Smokeless Tobacco: Never Tobacco Cessation:Counseling Given: Not Answered Alcohol Use Standard Drinks/Week Comments Yes 0 (1 standard drink = 0.6 oz pur e alcohol) rare 1-2 times per month Comments No Sex and Gender Information Value Date Recorded Sex Assigned at Not on file Legal Sex Female 2:27 PM CDT Gender Identity Not on file Sexual Orientation Not on file Last Filed Vital Signs Vital Sign Reading Time Taken Comments Blood Pressure 129/78 07/20/2024 8:51 AM CDT Pulse 61 07/20/2024 8:51 AM CDT Temperature 36.6 C (97.9 F) 07/20/2024 8:51 AM CDT Respiratory Rate 18 09/15/2015 12:31 AM CDT Oxygen Saturation 99% 07/20/2024 8:51 AM CDT Inhaled Oxygen Concentration - - Weight 112.5 kg (248 lb) 07/20/2024 8:51 AM CDT Height 167.6 cm (5' 6) 07/20/2024 8:51 AM CDT Body Mass Index 40.03 07/20/2024 8:51 AM CDT Plan of Treatment Upcoming Encounters Date Type Department Care Team (Late st Contact Info) Description 01/30/2025 1:30 PM CDT Office Visit [facility] - [address], [place] [phone] Elias Cadet III, MD [address] [place] [phone] Health Maintenance Due Date Last Done Comments HIV SCREENING 1996 HEPATITIS C SCREENING 07/21/1999 DTAP/TDAP/TD VACCINES (1 - Tdap) 2000 HEPATITIS B VACCINE (1 of 3 - 19+ 3-dose series) 2000 HPV VACCINE (1 - 3-dose SCDM series) 2008 COVID-19 VACCINE ( - season) 2024 DEPRESSION SCREENING 05/09/2024 MAMMOGRAM 06/25/2024 06/25/2022, 06/09, 05/01/2020, Additional history exists INFLUENZA VACCINE (#1) 2025 , 03/30/2023, 03/17/2016, Additional history exists SCREENING FOR DIABETES 03/02/2027 , 01/07/2024, 01/07/2024, Additional history exists LIPID TESTING 08/15/2028 08/16/2023, 02/12/2022 ZOSTER VACCINE (1 of 2) 07/26/2031 HIB VACCINE Aged Out No longer eligi ble based on patient's age to complete this topic MENINGOCOCCAL (Group B) VACCINE SHARED DECISION-MAKING Aged Out No longer eligible based on patient's age to complete this topic MENINGOCOCCAL GROUPS A/C/Y/W VACCINE Aged Out No longer eligible based on patient's age to complete this topic PNEUMOCOCCAL VACCINE Aged Out No long er eligible based on patient's age to complete this topic Goals Goal Patient Goal Type Associated Problems Recent Progress Patient-Stated? Author Medication Management General On track( 024 11:51 AM CDT) Kyle Barton, CROW Note: Expected end date: ongoing Interventions: Take [...] Obesity, Class III, BMI 40-49.9 (morbid obesity) from Last 3 Months or Most Recently [...] of diabetes for children. Test Performed at: [facility] [address] CHAZ MENDOZA MD 03/02/2024 8:02 AM CDT 03/02/2024 8:03 AM CDT us Elias Cadet III, MD LAB - CHEMISTRY ORDERABLE S Final Result Performing Organization Address [facility] de Phone Number [address] [address] * (ABNORMAL) LIPID PROFILE (08/16/2023 3:47 PM [...] factors. LDL-C is now calculated using the Theron-Taisha calculation, which is a validated novel method providing better accuracy than the Friedewald equation in the estimation of LDL-C. Theron SS et al. LALIT. 2013;310(19): 2357-1242 (http://education.GlobalLab.Sprout Social/faq/YWP135) CHOL/HDLC RATIO 3.9 <5.0 (calc) [facility] Non HDL Cholesterol 176(H) <130 mg/dL (calc) [facility] Comment: For patients with diabetes plus 1 major ASCVD risk factor, treating to a non-HDL-C goal of <100 mg/dL (LDL-C of <70 mg/dL) is considered a therapeutic option. Test Performed at: [facility] [address] [place] [address] CHAZ MENDOZA MD Blood BLOOD SPECIMEN / Unknown 08/16/2023 3:47 PM CDT 08/16/2023 3:48 PM CDT us Elias Cadet III, MD LAB - CHEMISTRY ORDERABLE S Final Result Performing Organization Address [facility]/ZIP Co de Phone Number [facility] [phone] [place] [address] from Last 3 Months or Most Recently Relevant to Health Maintenance Insurance [facility] [place] [place] [address] Advance Directives * Full Code (Latest Code Status on File) Date Activated Date Inactivated Comments 09/04/2015 4:51 PM 09/07/2015 10:05 PM Care Teams Shoe Sewing Machine Operator And Tender Relationship Specialty Start Date End Date Zia Garcias MD [address] [place] [address] PCP - General Family Medicine 07/20/23 Angélica Rod, physical testing supervisor 09/05/15
[2024-12-24 19:17] LABS: Hematocrit 39.8 % (37.0-47.0); Hemoglobin 13.0 g/dL (12.0-15.0); Mean Corpuscular HGB Conc 32.7 g/dl (32-36); Mean Corpuscular Hemoglobin 30.8 pg (26-34); Mean Corpuscular Volume 94.3 fl (80-100); Platelet Count Result 319 k/mm3 (150-375); Red Blood Count 4.22 M/mm3 (4.2-5.4); White Blood Count 7.4 K/mm3 (4.5-10.0)
[2024-12-24 20:27] LABS: Alanine Aminotransferase 32 U/L (6-35); Albumin Level 4.1 g/dL (3.5-5.1); Alkaline Phosphatase 54 U/L (38-126); Anion Gap 6 mmol/L (4-12); Aspartate Amino Transferase 56 U/L (14-36); Bilirubin,Total 0.1 mg/dL (0.2-1.3); Blood Urea Nitrogen 12 mg/dL (7-17); Calcium 9.7 mg/dL (8.4-10.2); Carbon Dioxide 27 mmol/L (22-30); Chloride 104 mmol/L (98-107); Cholesterol 248 mg/dL (0-200); Estimated Glomerular Filt Rate > 60; Glucose 110 mg/dL (65-110); HDL Direct 60 mg/dL; Potassium 3.9 mmol/L (3.4-5.0); Sodium 137 mmol/L (137-145); Total Protein 7.9 g/dL (6.3-8.2); Triglycerides 106 mg/dL (<150)
[2024-12-24 20:58] LABS: Thyroid Stimulating Hormone 1.660 uIU/mL (0.465-4.680)
[2024-12-24 21:07] LABS: Hemoglobin A1C 5.9 % (<5.7)
[2024-12-24 21:33] LABS: Vitamin B12 985.0 pg/mL (239-931)
[2024-12-24 22:08] LABS: Iron 66 ug/dL (37-170)
[2024-12-24 22:17] LABS: Percent Iron Saturation 21 % (20-50)
[2024-12-24 22:26] LABS: Free T4 Free Thyroxine 0.92 ng/dL (0.78-2.19)
[2024-12-24 22:44] LABS: Ferritin 67.20 ng/mL (6.24-137)
== END 2024-12-24 10:43 | disposition home or self-care (01) ==
LOC: ANHBWCLAB 10:43
PROVIDERS: PCP Nurse Practitioner Adult Health; Visit Provider Nurse Practitioner Adult Health
DX: R73.03 Prediabetes (principal); Z00.00 Encounter for general adult medical examination without abnormal findings; M25.50 Pain in unspecified joint; R53.83 Other fatigue; D64.9 Anemia, unspecified; I10 Essential (primary) hypertension; M54.9 Dorsalgia, unspecified; R79.89 Other specified abnormal findings of blood chemistry
CPT/HCPCS: 36415; 72100; 80053; 80061; 82306; 82607; 82728; 82746; 83036; 83540; 83550; 84439; 84443; 85027; 85652

== ENCOUNTER 2024-12-26 08:52 | Outpatient (CLI) | payer OTHER, SELFPAY ==
--- OUTSIDE RECORDS SUMMARY | 2024-12-26 08:59 | XMS_ITS | Encounter Summary ---
Author Organization [facility] Healthcare Address [address] [place] [address] Care Team Providers Care Certified Nurse Name Role Phone Juan Hwang DO Primary Care Provider [phone] Zia Garcias MD Primary Care Provider [phone] Encounter Details Date Type Department Care Team (Late st Contact Info) Description 01/29/2021 Telephone [facility] [address] [place] [id number] Tyra Bond, [facility] Social History Tobacco Use Types Packs/Day Years Used Date Smoking Tobacco: Never Smokeless Tobacco: Never Alcohol Use Standard Drinks/Week Comments Yes 0 (1 standard drink = 0.6 oz pur e alcohol) socially Comments No Sex and Gender Information Value Date Recorded Sex Assigned at Not on file Legal Sex Female 9:25 AM SAS STATISTICAL PROGRAMMER Gender Identity Female 05/19/2022 3:11 PM SAS STATISTICAL PROGRAMMER Sexual Orientation Straight 05/19/2022 3: 11 PM SAS STATISTICAL PROGRAMMER documented as of this encounter Plan of Treatment Not on file documented as of this encounter Visit Diagnoses Not on filedocumented in this encounter Care Teams Certified Nurse Relationship Specialty Start Date End Date Juan Hwang DO PCP - General Family Medicine 03/27/20 02/11/22 Zia Garcias MD PCP - General Family Practice 02/12/22 documented as of this encounter
--- OUTSIDE RECORDS SUMMARY | 2024-12-26 08:59 | XMS_ITS | Clinical Summary ---
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 Member Subscriber Plan / Payer (Ef fective 2020-Present) Name:Irina Can Lakisha Relation to Subscriber:Self Name:Irina Can Payer ID:[id number] (NAIC) Group ID:Not on file Type:MEDICAID RISK OTHER Address: [address] [place], [place] [id number] [place] [address] [facility] Advance Directives For more information, please contact: [phone] * Full Code (Latest Code Status on File) Date Activated Date Inactivated Comments 12/29/2020 11:34 AM 12/29/2020 5:39 PM * Full Code Date Activated Date Inactivated Comments 12/29/2020 11:34 AM 12/29/2020 11:34 AM Care Teams Fish Hatchery Superintendent Relationship Specialty Start Date End Date Zia Garcias MD PCP - General Family Practice 02/12/22
--- OUTSIDE RECORDS SUMMARY | 2024-12-26 08:59 | XMS_ITS | Clinical Summary ---
Author Organization [facility] Address [address] [place] [address] Care Team Providers Care Steel Spar Operator Name Role Phone Angélica Rod RN, Justin Bradley MD Primary Care Provider [phone] Source Comments [facility] [employer],non-owned Affiliates and Associated Physician Practices is amultiple site organization consisting of ambulatory clinics and hospital sitesin [place], [place], [place] and [place]. This disclosure is being madepursuant to the Care Everywhere program and may not contain all information available regarding this patient. Last updated 18.[facility] [employer] Allergies Active Allergy Reactions Criticality Noted Date [...] tablet by mouth once daily Active B Knxhyud-W-Zerre Acid (vitamin B complex with C) Take 1 (one) tablet by mouth once daily Active Biotin 03960 MCG Take 1 (one) tablet by mouth [...] Description 01/30/2025 1:30 PM CDT Office Visit [facility] - [address], [place] [phone] Elias Cadet III, MD [address] [place] [phone] Health Maintenance Due Date Last Done Comments HIV SCREENING 1996 HEPATITIS C SCREENING 07/21/1999 DTAP/TDAP/TD VACCINES (1 - Tdap) 2000 HEPATITIS B VACCINE (1 of 3 - 19+ 3-dose series) 2000 PAP SMEAR 2002 HPV VACCINE (1 - 3-dose SCDM series) 2008 COVID-19 VACCINE ( season) 2024 DEPRESSION SCREENING [...] of diabetes for children. Test Performed at: [facility] [address] CHAZ MENDOZA MD 03/02/2024 8:02 AM CDT 03/02/2024 8:03 AM CDT us Elias Cadet III, MD LAB - CHEMISTRY ORDERABLE S Final Result Performing Organization Address [facility] Co de Phone Number [address] [address] * (ABNORMAL) LIPID PROFILE (08/16/2023 3:47 PM [...] LDL-C. Theron SS et al. LALIT. 2013;310(19): 7865-0189 (http://education.Diabetes America.ACTION SPORTS/faq/MHM016) CHOL/HDLC RATIO 3.9 <5.0 (calc) [facility] Non HDL Cholesterol 176(H) <130 mg/dL (calc) [facility] Comment: For patients with diabetes plus 1 major ASCVD risk factor, treating to a non-HDL-C goal of <100 mg/dL (LDL-C of <70 mg/dL) is considered a therapeutic option. Test Performed at: [facility] [address] [address] CHAZ MENDOZA MD Blood BLOOD SPECIMEN / Unknown 08/16/2023 3:47 PM CDT 08/16/2023 3:48 PM CDT us Elias Cadet III, MD LAB - CHEMISTRY ORDERABLE S Final Result Performing Organization Address City/[facility]/ZIP Co de Phone Number [facility] [address] [place] [address] from Last 3 Months or Most Recently Relevant to Health Maintenance Insurance [facility] Advance Directives * Full Code (Latest Code Status on File) Date Activated Date Inactivated Comments 09/04/2015 4:51 PM 09/07/2015 10:05 PM Care Teams Steel Spar Operator Relationship Specialty Start Date End Date Zia Garcias MD [address] [place] [phone] PCP - General Family Medicine 07/20/23 Angélica Rod, marketing reporting analyst 09/05/15
--- OUTSIDE RECORDS SUMMARY | 2024-12-26 08:59 | XMS_ITS | Clinical Summary ---
Author Organization [facility] Address [address] [place] [address] Phone Care Team Providers Care Healthcare Risk Control Consultant Name Role Phone Zia Garcias MD Primary Care Provider [phone] Allergies Active Allergy Reactions Criticality Noted Date [...] Insurance MEDICAID [facility] [employer] Care Teams Healthcare Risk Control Consultant Relationship Specialty Start Date End Date Zia Garcias MD PCP - General Family Medicine 07/12/23
[2024-12-26 18:32] LABS: Add Urine Microscopic? NO; Appearance Urine Clear (Clear); Glucose Urine UA Negative (Negative); Leukocyte Esterase Ur Negative LEU/UL (Negative); Nitrate Urine Negative (Negative); Specific Grav Ur 1.028 (1.001-1.035)
== END 2024-12-26 08:53 | disposition home or self-care (01) ==
LOC: ANHBWCLAB 08:53
PROVIDERS: PCP Nurse Practitioner Adult Health; Visit Provider Nurse Practitioner Adult Health
DX: R39.9 Unspecified symptoms and signs involving the genitourinary system (principal)
CPT/HCPCS: 81003; 87086

== ENCOUNTER 2025-01-30 09:06 | Outpatient (CLI) | payer OTHER, SELFPAY ==
--- NOTE | ~2025-01-30 | NM_ITS ---
EXAMINATION: NM antonia stress w perfusion DATE: 01/30/2025 11:41 INDICATION: Chest pain. TECHNIQUE: Rest images were obtained following intravenous administration of 11.0 mCi Tc99m tetrofosmin (Myoview). The patient was infused intravenously with Lexiscan (regadenoson). Then, 33.4 mCi Tc99m tetrofosmin (Myoview) was administered intravenously, and supine and prone stress images were obtained. Data was reconstructed into short axis and horizontal and vertical long axis SPECT images. Gated SPECT images were also obtained. COMPARISON: None. FINDINGS: There is breast attenuation artifact. There is no definite reversible or fixed perfusion abnormality to suggest ischemia or infarction. There is no segmental wall motion abnormality. Left ventricular ejection fraction measures 69%. IMPRESSION: 1. No definite ischemia or infarct. 2. Normal left ventricular ejection fraction measuring 69%. Reviewed, dictated and finalized at location E.
--- NOTE | 2025-01-30 09:32 | EST_ITS ---
Patient Info Name: Irina Can Age: 44 years : 1980 Gender: Female Ht: 66 in Wt: 238 lbs BSA: 2.29 m2 HR: 52 bpm BP: 126 / 78 mmHg Exam Date: 01/30/2025 9:32 AM Patient Status: O Admit Date: 01/30/2025 Exam Type: CA stress antonia w NM A regadenoson stress test was performed. Staff Referring Physician: Shekhar Mock DO Attending Provider: Shekhar Mock DO Exercise Technologist: Rica Farah Exercise Physician: Shekhar Mock DO Summary 1. 1. Negative lexiscan stress test for ischemic ST changes by ECG criteria. 2. 2. Stable hemodynamics throughout the test. 3. 3. Nuclear scan to follow and will be reported separately. Please correlate with it. 4. 4. Patient informed of the above results. Protocol: Lexiscan Stress ECG Details Stage: REST Duration (min): 1 min : 1 sec HR (bpm): 53 SBP (mmHg): 126 DBP (mmHg): 78 Stage: REST Duration (min): 10 min : 3 sec HR (bpm): 57 SBP (mmHg): 126 DBP (mmHg): 78 Stage: STAGE 1 Duration (min): 0 min : 59 sec HR (bpm): 88 SBP (mmHg): 147 DBP (mmHg): 59 Stage: RECOVERY Duration (min): 1 min : 0 sec HR (bpm): 83 SBP (mmHg): 147 DBP (mmHg): 59 Stage: RECOVERY Duration (min): 2 min : 0 sec HR (bpm): 77 SBP (mmHg): 147 DBP (mmHg): 59 Stage: RECOVERY Duration (min): 3 min : 0 sec HR (bpm): 73 SBP (mmHg): 121 DBP (mmHg): 65 Stage: RECOVERY Duration (min): 4 min : 0 sec HR (bpm): 67 SBP (mmHg): 121 DBP (mmHg): 65 Stage: RECOVERY Duration (min): 5 min : 0 sec HR (bpm): 64 SBP (mmHg): 126 DBP (mmHg): 68 Stage: RECOVERY Duration (min): 5 min : 6 sec HR (bpm): 65 SBP (mmHg): 126 DBP (mmHg): 68 Rest HR: 57 bpm Peak HR: 88 bpm Rest Sys BP: 126 mmHg Peak Sys BP: 147 mmHg Max Pred HR: 177 bpm % Max Pred HR: 50 % Target HR: 150 bpm Max RPP: 12,936 bpm*mmHg Termination Reason: Completed protocol Cardiac Symptoms: Shortness of breath Total Time: 1 min : 0 sec Rest Izaguirre BP: 78 mmHg Peak Izaguirre BP: 59 mmHg Total Dose: 0.4 mg Resting ECG Sinus bradycardia. Stress ECG No ST changes. Arrhythmias None. Report Signatures
--- OUTSIDE RECORDS SUMMARY | 2025-01-30 09:43 | XMS_ITS | Clinical Summary ---
Author Organization [facility] Address [address] [place] [address] Phone Care Team Providers Care [employer] Division Manager Name Role Phone Zia Garcias MD Primary Care Provider [phone] Allergies Active Allergy Reactions Criticality Noted Date [...] series) 2008 Mammogram 06/25/2023 06/25/2022, 04/09, 02/28/2020 Influenza Immunization (#1) 01/07/202504/08, 03/17/2016, 01/30/2015 SARS-COV-2 Immunization (2023- season) 2025 Respiratory Syncytial Virus (RSV) Immunization (Adult) (1 [...] Insurance MEDICAID [facility] Care Teams [employer] Division Manager Relationship Specialty Start Date End Date Zia Garcias MD PCP - General Family Medicine 07/12/23
--- OUTSIDE RECORDS SUMMARY | 2025-01-30 09:43 | XMS_ITS | Clinical Summary ---
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 Abdominal pain 07/23/2020 Gastroesophageal reflux dise ase with esophagitis without hemorrhage 07/23/2020 Biliary colic 05/21/2020 Overview (05/21/2020): Added automatically from request for surgery [id number] Resolved Problems Problem Noted Date Diagnosed Date [...] on file Legal Sex Female 9:25 AM DAIRY CATTLE FARMER Gender Identity Female 05/19/2022 3:11 PM DAIRY CATTLE FARMER Sexual Orientation Straight 05/19/2022 3: 11 PM DAIRY CATTLE FARMER Obstetrics History Para Term AB IAB SAB [...] Most Recently Relevant to Health Maintenance Insurance [facility] Member Subscriber Plan / Payer (Ef fective 2020-Present) Name:Irina Can Lakisha Relation to Subscriber:Self Name:Irina Can Payer ID:[id number] (NAIC) Group ID:Not on file Type:MEDICAID [id number] OTHER Address: [address] [place], [place] [id number] [place] [address] [facility] Advance Directives For more information, please contact: [phone] * Full Code (Latest Code Status on File) Date Activated Date Inactivated Comments 12/29/2020 11:34 AM 12/29/2020 5:39 PM * Full Code Date Activated Date Inactivated Comments 12/29/2020 11:34 AM 12/29/2020 11:34 AM Care Teams Supervisor Television Chassis Repair Relationship Specialty Start Date End Date Zia Garcias MD PCP - General Family Practice 02/12/22
--- OUTSIDE RECORDS SUMMARY | 2025-01-30 09:43 | XMS_ITS | Encounter Summary ---
Author Organization [facility] Healthcare Address [address] [place] [address] Care Team Providers Care Passenger Car Upholsterer Apprentice Name Role Phone Juan Hwang DO Primary Care Provider [phone] Zia Garcias MD Primary Care Provider [phone] Encounter Details Date Type Department Care Team (Late st Contact Info) Description 01/29/2021 Telephone [facility] [address] [place] [id number] Tyra Bond, [facility] Social History Tobacco Use Types Packs/Day Years Used Date Smoking Tobacco: Never Smokeless Tobacco: Never Alcohol Use Standard Drinks/Week Comments Yes 0 (1 standard drink = 0.6 oz pur e alcohol) socially Comments No Sex and Gender Information Value Date Recorded Sex Assigned at Not on file Legal Sex Female 9:25 AM CYBER SYSTEMS OPERATIONS SPECIALIST Gender Identity Female 05/19/2022 3:11 PM CYBER SYSTEMS OPERATIONS SPECIALIST Sexual Orientation Straight 05/19/2022 3: 11 PM CYBER SYSTEMS OPERATIONS SPECIALIST documented as of this encounter Plan of Treatment Not on file documented as of this encounter Visit Diagnoses Not on filedocumented in this encounter Care Teams Passenger Car Upholsterer Apprentice Relationship Specialty Start Date End Date Juan Hwang DO PCP - General Family Medicine 03/27/20 02/11/22 Zia Garcias MD PCP - General Family Practice 02/12/22 documented as of this encounter
--- OUTSIDE RECORDS SUMMARY | 2025-01-30 09:43 | XMS_ITS | Clinical Summary ---
Author Organization [facility] Address [address] [place] [address] Care Team Providers Care Filler Spreader Name Role Phone Angélica Rod RN, Justin Bradley MD Primary Care Provider [phone] Source Comments [facility],non-owned Affiliates and Associated Physician Practices is amultiple site organization consisting of ambulatory clinics and hospital sitesin [place], [place], [place] and [place]. This disclosure is being madepursuant to the Care Everywhere program and may not contain all information available regarding this patient. Last updated 18.[facility] Allergies Active Allergy Reactions Criticality Noted Date [...] tablet by mouth once daily Active B Iscamyi-U-Rdvkt Acid (vitamin B complex with C) Take 1 (one) tablet by mouth once daily Active Biotin 13577 MCG Take 1 (one) tablet by mouth [...] Description 01/30/2025 1:30 PM CDT Office Visit [facility] - [address], [place] [id number] Elias Cadet III, MD [address] [place] [phone] Health Maintenance Due Date Last Done Comments HIV SCREENING 1996 HEPATITIS C SCREENING 07/21/1999 DTAP/TDAP/TD VACCINES (1 - Tdap) 2000 HEPATITIS B VACCINE (1 of 3 - 19+ 3-dose series) 2000 PAP SMEAR 2002 HPV VACCINE (1 - 3-dose SCDM series) 2008 DEPRESSION SCREENING 05/09/2024 COVID-19 VACCINE ( - season) 2025 INFLUENZA VACCINE (#1) 2025 , 03/30/2023, 03/08/2023, Additional history exists MAMMOGRAM 08/31/2026 08/31/2024, 2 09/2024, 06/25/2022, Additional history exists SCREENING FOR DIABETES 03/02/2027 , 08/16/2023, 08/16/2023, Additional history exists LIPID TESTING 08/15/2028 08/16/2023, [...] of diabetes for children. Test Performed at: [facility] [address] CHAZ MENDOZA MD 03/02/2024 8:02 AM CDT 03/02/2024 8:03 AM CDT us Elias Cadet III, MD LAB - CHEMISTRY ORDERABLE S Final Result Performing Organization Address [facility] de Phone Number [address] [address] * (ABNORMAL) LIPID PROFILE (08/16/2023 3:47 PM [...] factors. LDL-C is now calculated using the Theron-Sumner calculation, which is a validated novel method providing better accuracy than the Friedewald equation in the estimation of LDL-C. Theron SS et al. LALIT. 2013;310(19): 9777-5884 (http://education.Lolabox.GetShopApp/faq/ATE718) CHOL/HDLC RATIO 3.9 <5.0 (calc) [facility] Non HDL Cholesterol 176(H) <130 mg/dL (calc) [facility] Comment: For patients with diabetes plus 1 major ASCVD risk factor, treating to a non-HDL-C goal of <100 mg/dL (LDL-C of <70 mg/dL) is considered a therapeutic option. Test Performed at: [facility] [place] [address] [id number] CHAZ MENDOZA MD Blood BLOOD SPECIMEN / Unknown 08/16/2023 3:47 PM CDT 08/16/2023 3:48 PM CDT us Elias Cadet III, MD LAB - CHEMISTRY ORDERABLE S Final Result [facility] [id number] [place] [address] from Last 3 Months or Most Recently Relevant to Health Maintenance Insurance [facility] Advance Directives * Full Code (Latest Code Status on File) Date Activated Date Inactivated Comments 09/04/2015 4:51 PM 09/07/2015 10:05 PM Care Teams Filler Spreader Relationship Specialty Start Date End Date Zia Garcias MD [address] [place] [address] PCP - General Family Medicine 07/20/23 Angélica Rod, rand butter 09/05/15
== END 2025-01-30 09:07 | disposition home or self-care (01) ==
PROVIDERS: PCP Nurse Practitioner Adult Health; Visit Provider Internal Medicine Cardiovascular Disease
DX: R07.9 Chest pain, unspecified (principal)
CPT/HCPCS: 78452; 93017; A9502; J2785

== ENCOUNTER 2025-03-27 11:47 | Outpatient (CLI) | payer OTHER, SELFPAY ==
--- NOTE | ~2025-03-27 | XR_ITS ---
EXAMINATION: XR shoulder RT min 2V DATE: 03/27/2025 12:07 INDICATION: Pain TECHNIQUE: Right shoulder x-ray were obtained. COMPARISON: November 29, 2022 FINDINGS: No gross interval change from November 2022. Mild arthrosis developing at the AC joint. IMPRESSION: No gross acute or aggressive bony or soft tissue process. For persisting right shoulder pain refractory to conservative therapy, consider correlation with right shoulder MRI for optimal sensitivity. Reviewed, dictated and finalized at location A. MOLD ENGRAVER IMPRESSION: No gross acute or aggressive bony or soft tissue process. For pers isting right shoulder pain refractory to conservative therapy, consider correla tion with right shoulder MRI for optimal sensitivity.
--- NOTE | ~2025-03-27 | XR_ITS ---
Examination: XR knee RT 3V Clinical History: bilateral shoulder pain, anterior rt knee pain x 2 weeks Comparison: None Technique: 3 views right knee Findings/impression: 1. No fracture, dislocation, or effusion. 2. No significant degenerative changes. 3. Minimal lateral patellar subluxation possible. 4. Small patellar enthesophytes. Reviewed, dictated and finalized at location R. INAL ATTORNEY
--- NOTE | ~2025-03-27 | XR_ITS ---
EXAMINATION: XR shoulder LT min 2V DATE: 03/27/2025 12:08 INDICATION: Left shoulder pain TECHNIQUE: AP internally and externally rotated, AP oblique externally rotated and transscapular Y views of the left shoulder were obtained. COMPARISON: None FINDINGS: Normal alignment. No fracture. Mild glenohumeral osteoarthritis with moderate size marginal osteophytes along the posterior and inferior aspect of the glenoid. Mild left acromioclavicular osteoarthritis. Visualized portion of the lungs are clear. Soft tissues are unremarkable. IMPRESSION: Mild left acromioclavicular and glenohumeral osteoarthritis. Reviewed, dictated and finalized at location A. RATORY INSPECTOR
== END 2025-03-27 11:48 | disposition home or self-care (01) ==
LOC: ANHBWCIMG 11:48
PROVIDERS: PCP Nurse Practitioner Adult Health; Visit Provider Nurse Practitioner Adult Health
DX: M25.511 Pain in right shoulder (principal); M25.561 Pain in right knee; M19.012 Primary osteoarthritis, left shoulder
CPT/HCPCS: 73030; 73562